=== PATIENT | female | born 1960 ===

== ENCOUNTER 2016-08-25 13:45 | Emergency (ER) | payer MEDICAID, SELFPAY ==
[2016-08-25 13:46] VITALS: BMI 31.9
[2016-08-25 14:01] VITALS: RESP 16
--- NOTE | 2016-08-25 14:13 | ED PDOC ---
HPI: Psych/Substance Abuse Time Seen by Provider: 08/25/16 14:04 Chief Complaint (Nursing): Chest Pain History Per: Patient (Anxious, palpitations worried about health and work. Karla [place]/HIMANSHU) Onset/Duration Of Symptoms: Days (2) Current Symptoms Are (Timing): Intermittent Episodes Suicide/Self Injury Attempted (Context): None Modifying Factor(s): None Severity: Mild Associated Symptoms: Anxiety Past Medical History Vital Signs: Last Vital Signs Temp 98.3 F 08/25/16 13:55 Pulse 81 08/25/16 13:55 Resp 16 08/25/16 13:55 BP 156/99 H 08/25/16 13:55 Pulse Ox 99 08/25/16 13:55 - Medical History PMH: Bronchitis, Diabetes, HTN, Hypercholesterolemia, Hyperlipidemia, Hypothyroidism, Pulmonary Embolism Denies: HIV, Chronic Kidney Disease - Family History Family History: States: Unknown Family Hx - Immunization History Hx Tetanus Toxoid Vaccination: No Hx Influenza Vaccination: No Hx Pneumococcal Vaccination: No - Home Medications Home Medications: Ambulatory Orders Medication Instructions Recorded Glimepiride [Amaryl] 4 mg PO DAILY 05/20/15 Metformin HCl 1,000 mg PO BID 05/20/15 Ramipril [Altace] 10 mg PO DAILY 05/20/15 Cyanocobalamin [Vitamin B12 1000 1,000 mcg PO DAILY #0 tab 05/22/15 mcg Tab] Levothyroxine [Levoxyl] 0.125 mg PO DAILY 06/11/15 Simvastatin 20 mg PO DAILY 06/11/15 diaZEpam [Valium] 2 mg PO BID PRN #6 tab 10/06/15 Naproxen [Naprosyn] 500 mg PO BID PRN #15 tablet 01/13/16 Erythromycin 0.5% [Erythromycin] 1 applic .ROUTE QID #1 tube 02/07/16 Acetaminophen with Codeine 1 tab PO Q6H PRN #15 tab 02/10/16 [Tylenol with Codeine No. 3 300 mg-30 mg] Clindamycin [Cleocin] 300 mg PO QID #40 cap 02/10/16 Albuterol HFA [Ventolin HFA 90 2 puff IH Q4H #1 puff 03/26/16 mcg/actuation (8 g)] Azithromycin [Zithromax] 250 mg PO DAILY #6 tab 03/26/16 predniSONE [predniSONE Tab] 10 mg PO TID #15 tab 03/26/16 Albuterol HFA [Ventolin HFA 90 2 puff IH [id number] PRN #1 bottle 04/06/16 mcg/actuation (8 g)] Levofloxacin [Levaquin] 750 mg PO DAILY #5 tablet 04/06/16 Hydroxyzine HCl 25 mg PO HS #6 tablet 08/25/16 - Allergies Allergies/Adverse Reactions: Allergies Allergy/AdvReac Type Severity Reaction Status Date / Time Iodine and Iodide Containing Allergy RASH Verified 07/07/16 23:54 Produc Review of Systems Cardiovascular: Positive for: Palpitations Psych: Positive for: Anxiety Physical Exam - Physical Exam Appears: Positive for: Non-toxic, No Acute Distress Skin: Positive for: Normal Color, Warm, DRY Cardiovascular/Chest: Positive for: Regular Rate, Rhythm Respiratory: Positive for: CNT, Normal Breath Sounds Neurologic/Psych: Positive for: Alert, Oriented - ECG O2 Sat by Pulse Oximetry: 99 Disposition - Clinical Impression Clinical Impression: Anxiety - Patient ED Disposition Is Patient to be Admitted: No - Disposition Referrals: [facility] [Outside] Disposition: Routine/Home Disposition Time: 16:14 Condition: FAIR Prescriptions: Hydroxyzine HCl 25 mg PO HS #6 tablet Instructions: Anxiety (ED)
[2016-08-25 15:46] LABS: T4 10.4 ug/dl (5.5-11.0)
[2016-08-25 15:59] LABS: THYROID STIMULATING HORMONE 0.13 mIU/ML (0.46-4.68)
[2016-08-25 16:33] VITALS: BP 132/73; PULSE 83; TEMP 98; O2SAT 100
== END 2016-08-25 16:33 | disposition home or self-care (01) ==
LOC: H.ER 13:45
DX: F41.9 Anxiety disorder, unspecified (principal); R07.9 Chest pain, unspecified; R00.2 Palpitations; E11.9 Type 2 diabetes mellitus without complications; E78.00 Pure hypercholesterolemia, unspecified; I10 Essential (primary) hypertension; Z86.711 Personal history of pulmonary embolism

== ENCOUNTER 2016-08-27 13:08 | Emergency (ER) | payer MEDICAID, SELFPAY ==
[2016-08-27 13:09] VITALS: BMI 31.9
[2016-08-27 13:38] VITALS: PULSE 79; TEMP 98.1; O2SAT 98
--- NOTE | 2016-08-27 14:05 | ED PDOC ---
HPI: General Adult Time Seen by Provider: 08/27/16 14:03 Chief Complaint (Nursing): Anxiety Chief Complaint (Provider): anxious History Per: Patient Additional Complaint(s): 56 year old female with history of hypothyroidism, HTN and high cholesterol presents with increasing anxiety and nervousness for the past few weeks. Patient was seen on 08/25/16 for same and was sent home with rx hydroxyzine. She is concerned her thyroid meds have to be adjusted. She states last year she has similar symptoms and her thyroid med dose was increased at that time and her symptoms resolved. Patient denies any chest pain, SOB or ROBLEDO, denies any palpitations but she has panic sensation. No associated suicidal or homicidal ideation, no fever or chills. Past Medical History Reviewed: Historical Data, Nursing Documentation, Vital Signs Vital Signs: Last Vital Signs Temp 98.1 F 08/27/16 13:34 Pulse 79 08/27/16 17:41 Resp 18 08/27/16 17:41 BP 142/84 08/27/16 17:41 Pulse Ox 98 08/27/16 18:33 - Medical History PMH: Anxiety, Diabetes, HTN, Hypercholesterolemia, Hyperlipidemia, Hypothyroidism - Surgical History Surgical History: No Surg Hx - Family History Family History: States: No Known Family Hx - Living Arrangements Living Arrangements: With Family - Social History Current smoker - smoking cessation education provided: No Alcohol: None Drugs: Denies - Home Medications Home Medications: Ambulatory Orders Medication Instructions Recorded Glimepiride [Amaryl] 4 mg PO DAILY 05/20/15 Metformin HCl 1,000 mg PO BID 05/20/15 Ramipril [Altace] 10 mg PO DAILY 05/20/15 Cyanocobalamin [Vitamin B12 1000 1,000 mcg PO DAILY #0 tab 05/22/15 mcg Tab] Levothyroxine [Levoxyl] 0.125 mg PO DAILY 06/11/15 Simvastatin 20 mg PO DAILY 06/11/15 diaZEpam [Valium] 2 mg PO BID PRN #6 tab 10/06/15 Naproxen [Naprosyn] 500 mg PO BID PRN #15 tablet 01/13/16 Erythromycin 0.5% [Erythromycin] 1 applic .ROUTE QID #1 tube 02/07/16 Acetaminophen with Codeine 1 tab PO Q6H PRN #15 tab 02/10/16 [Tylenol with Codeine No. 3 300 mg-30 mg] Clindamycin [Cleocin] 300 mg PO QID #40 cap 02/10/16 Albuterol HFA [Ventolin HFA 90 2 puff IH Q4H #1 puff 03/26/16 mcg/actuation (8 g)] Azithromycin [Zithromax] 250 mg PO DAILY #6 tab 03/26/16 predniSONE [predniSONE Tab] 10 mg PO TID #15 tab 03/26/16 Albuterol HFA [Ventolin HFA 90 2 puff IH [id number] PRN #1 bottle 04/06/16 mcg/actuation (8 g)] Levofloxacin [Levaquin] 750 mg PO DAILY #5 tablet 04/06/16 Hydroxyzine HCl 25 mg PO HS #6 tablet 08/25/16 Levothyroxine [Synthroid] 125 mcg PO DAILY #30 tab 08/27/16 - Allergies Allergies/Adverse Reactions: Allergies Allergy/AdvReac Type Severity Reaction Status Date / Time Iodine and Iodide Containing Allergy RASH Verified 07/07/16 23:54 Produc Review of Systems ROS Statement: Except As Marked, All Systems Reviewed And Found Negative Constitutional: Negative for: Fever, Chills, Weakness Cardiovascular: Negative for: Chest Pain, Palpitations Respiratory: Negative for: Shortness of Breath, SOB with Exertion Gastrointestinal: Negative for: Nausea, Vomiting Neurological: Negative for: Headache, Dizziness Psych: Positive for: Anxiety Physical Exam - Reviewed Nursing Documentation Reviewed: Yes Vital Signs Reviewed: Yes - Physical Exam Appears: Positive for: Well, Non-toxic, No Acute Distress Skin: Negative for: Rash Eye Exam: Positive for: Normal appearance, EOMI, PERRL Cardiovascular/Chest: Positive for: Regular Rate, Rhythm Respiratory: Positive for: Normal Breath Sounds Extremity: Positive for: Normal ROM. Negative for: Pedal Edema Neurologic/Psych: Positive for: Alert, Oriented - Laboratory Results Result Diagrams: 08/27/16 14:25 08/27/16 14:25 - ECG O2 Sat by Pulse Oximetry: 98 Pulse Ox Interpretation: Normal Medical Decision Making Medical Decision Makin56 year old with anxiety Plan: CBC CMP TSH T3 T4 Patient was offered crisis consultation she declines, denies suicidal or homicidal ideation. TSH is low. I spoke with family practice resident who states to adjust patient' s levothyroxine dose. Patient's dose was adjusted from 100 mcg daily to 125 mcg dialy. Rx was given. Patient was instructed to stop current 100 g tablet and continue with prescription instead. Patient has follow up with clinic on and she was instructed to keep this appointment. Disposition - Clinical Impression Clinical Impression: Hypothyroidism - Patient ED Disposition Is Patient to be Admitted: No Counseled Patient/Family Regarding: Studies Performed, Diagnosis, Need For Followup, Rx Given - Disposition Referrals: [facility] [Outside] Disposition: Routine/Home Disposition Time: 17:28 Condition: STABLE Additional Instructions: Stop taking current thyroid medication and continue with the new dose prescribed today. Keep your appointment on September 04 with the clinic for follow- up. Return any time to ED if acutely worse. Prescriptions: Levothyroxine [Synthroid] 125 mcg PO DAILY #30 tab Instructions: Hypothyroidism (ED) Results - Lab Results Lab Results: 08/27/16 14:25 WBC 4.6 L RBC 4.79 Hgb 13.3 Hct 40.9 MCV 85.5 MCH 27.8 MCHC 32.5 L RDW 13.6 Plt Count 179 MPV 9.1 Neut % (Auto) 55.4 Lymph % (Auto) 31.3 [place] % (Auto) 8.6 Eos % (Auto) 4.1 H Baso % (Auto) 0.6 Neut # 2.6 Lymph # 1.5 [place] # 0.4 Eos # 0.2 Baso # 0.0 Sodium 144 Potassium 4.6 Chloride 104 Carbon Dioxide 28 Anion Gap 17 BUN 12 Creatinine 0.6 L Est GFR ( Amer) > 60 Est GFR (Non-Af Amer) > 60 Random Glucose 157 H Calcium 9.7 Total Bilirubin 0.5 AST 33 ALT 31 Alkaline Phosphatase 46 Total Protein 7.3 Albumin 4.0 Globulin 3.3 Albumin/Globulin Ratio 1.2 Free T4 1.25 TSH 3rd Generation 0.13 L
[2016-08-27 14:45] LABS: BASO % 0.6 % (0.0-2.0); EOS # 0.2 K/uL (0.0-0.7); EOS % 4.1 % (0.0-4.0); HEMATOCRIT 40.9 % (34.0-47.0); LYMPH # 1.5 K/uL (1.0-4.3); LYMPH % 31.3 % (20.0-40.0); MEAN CELL VOLUME 85.5 fl (81.0-99.0); MEAN CORPUSCULAR HEMOGLOBIN 27.8 pg (27.0-31.0); MEAN CORPUSCULAR HGB CONC 32.5 g/dL (33.0-37.0); MEAN PLATELET VOLUME 9.1 fl (7.2-11.7); MONO # 0.4 K/uL (0.0-0.8); MONO % 8.6 % (0.0-10.0); NEUT # 2.6 K/uL (1.8-7.0); NEUT % 55.4 % (50.0-75.0); RED CELL DISTRIBUTION WIDTH 13.6 % (11.5-14.5); WHITE BLOOD COUNT 4.6 K/uL (4.8-10.8)
[2016-08-27 14:54] LABS: ALB/GLOB RATIO 1.2 (1.0-2.1); ALKALINE PHOSPHATASE 46 U/L (38-126); ALT/SGPT 31 U/L (9-52); AST/SGOT 33 U/L (14-36); BILIRUBIN,TOTAL 0.5 mg/dl (0.2-1.3); BLOOD UREA NITROGEN 12 mg/dl (7-17); CALCIUM 9.7 mg/dL (8.4-10.2); CARBON DIOXIDE 28 mmol/L (22-30); CHLORIDE 104 mmol/L (98-107); GFR AFRICAN-AMERICAN > 60; GLUCOSE,RANDOM 157 mg/dL (65-105); SODIUM 144 mmol/l (132-148); TOTAL PROTEIN 7.3 G/DL (6.3-8.2)
[2016-08-27 14:57] LABS: POTASSIUM 4.6 MMOL/L (3.6-5.0)
[2016-08-27 16:56] LABS: THYROID STIMULATING HORMONE 0.13 mIU/ML (0.46-4.68)
[2016-08-27 17:42] VITALS: BP 142/84; RESP 18
[2016-08-27 22:09] LABS: FT3 3.32 pg/mL (2.77-5.27)
== END 2016-08-27 17:45 | disposition home or self-care (01) ==
LOC: H.ER 13:08
DX: E03.9 Hypothyroidism, unspecified (principal); F41.9 Anxiety disorder, unspecified

== ENCOUNTER 2017-01-02 08:05 | Emergency (ER) | payer MEDICAID ==
[2017-01-02 08:05] VITALS: BMI 31.9
[2017-01-02 09:30] LABS: BASO % 0.5 % (0.0-2.0); EOS # 0.1 K/uL (0.0-0.7); EOS % 2.4 % (0.0-4.0); HEMATOCRIT 38.7 % (34.0-47.0); LYMPH # 1.5 K/uL (1.0-4.3); LYMPH % 31.8 % (20.0-40.0); MEAN CELL VOLUME 84.2 fl (81.0-99.0); MEAN CORPUSCULAR HEMOGLOBIN 28.2 pg (27.0-31.0); MEAN CORPUSCULAR HGB CONC 33.4 g/dL (33.0-37.0); MEAN PLATELET VOLUME 8.9 fl (7.2-11.7); MONO # 0.4 K/uL (0.0-0.8); MONO % 7.5 % (0.0-10.0); NEUT # 2.7 K/uL (1.8-7.0); NEUT % 57.8 % (50.0-75.0); RED CELL DISTRIBUTION WIDTH 13.6 % (11.5-14.5); WHITE BLOOD COUNT 4.7 K/uL (4.8-10.8)
[2017-01-02 09:38] LABS: BLOOD UREA NITROGEN 19 mg/dl (7-17); CALCIUM 9.2 mg/dL (8.4-10.2); CARBON DIOXIDE 25 mmol/L (22-30); CHLORIDE 101 mmol/L (98-107); GFR AFRICAN-AMERICAN > 60; GLUCOSE,RANDOM 207 mg/dL (65-105); POTASSIUM 4.6 MMOL/L (3.6-5.0); SODIUM 136 mmol/l (132-148)
--- NOTE | 2017-01-02 09:39 | ED PDOC ---
HPI: General Adult Time Seen by Provider: 01/02/17 08:13 Chief Complaint (Nursing): Weakness/Neurological Deficit Chief Complaint (Provider): Generalized Weakness History Per: Patient History/Exam Limitations: no limitations Onset/Duration Of Symptoms: Days (x2 weeks ) Current Symptoms Are (Timing): Still Present Additional Complaint(s): 56 y/o female with a past medical history of hypertension, diabetes, and hypothyroidism who presents to the emergency department with a complaint of generalized weakness, fatigue, low energy, and intermittent nausea x2 weeks. States she was experiencing chest pain on/off but had resolved since. Denies vomiting, dizziness, syncope, unusual bleeding, diarrhea, fever, or chills. PMD: Clinic Past Medical History Reviewed: Historical Data, Nursing Documentation, Vital Signs Vital Signs: Last Vital Signs Temp 98.4 F 01/02/17 08:21 Pulse 82 01/02/17 08:21 Resp 20 01/02/17 08:21 BP 157/85 H 01/02/17 08:21 Pulse Ox 99 01/02/17 09:44 - Medical History PMH: Anxiety, Bronchitis, Diabetes, HTN, Hypercholesterolemia, Hyperlipidemia, Hypothyroidism, Pulmonary Embolism Denies: HIV, Chronic Kidney Disease - Family History Family History: States: Unknown Family Hx - Immunization History Hx Tetanus Toxoid Vaccination: No Hx Influenza Vaccination: No Hx Pneumococcal Vaccination: No - Home Medications Home Medications: Ambulatory Orders Medication Instructions Recorded Glimepiride [Amaryl] 4 mg PO DAILY 05/20/15 Metformin HCl 1,000 mg PO BID 05/20/15 Ramipril [Altace] 10 mg PO DAILY 05/20/15 Cyanocobalamin [Vitamin B12 1000 1,000 mcg PO DAILY #0 tab 05/22/15 mcg Tab] Levothyroxine [Levoxyl] 0.125 mg PO DAILY 06/11/15 Simvastatin 20 mg PO DAILY 06/11/15 diaZEpam [Valium] 2 mg PO BID PRN #6 tab 10/06/15 Naproxen [Naprosyn] 500 mg PO BID PRN #15 tablet 01/13/16 Erythromycin 0.5% [Erythromycin] 1 applic .ROUTE QID #1 tube 02/07/16 Acetaminophen with Codeine 1 tab PO Q6H PRN #15 tab 02/10/16 [Tylenol with Codeine No. 3 300 mg-30 mg] Clindamycin [Cleocin] 300 mg PO QID #40 cap 02/10/16 Albuterol HFA [Ventolin HFA 90 2 puff IH Q4H #1 puff 03/26/16 mcg/actuation (8 g)] Azithromycin [Zithromax] 250 mg PO DAILY #6 tab 03/26/16 predniSONE [predniSONE Tab] 10 mg PO TID #15 tab 03/26/16 Albuterol HFA [Ventolin HFA 90 2 puff IH [id number] PRN #1 bottle 04/06/16 mcg/actuation (8 g)] Levofloxacin [Levaquin] 750 mg PO DAILY #5 tablet 04/06/16 Hydroxyzine HCl 25 mg PO HS #6 tablet 08/25/16 Levothyroxine [Synthroid] 125 mcg PO DAILY #30 tab 08/27/16 - Allergies Allergies/Adverse Reactions: Allergies Allergy/AdvReac Type Severity Reaction Status Date / Time Iodine and Iodide Containing Allergy RASH Verified 01/02/17 08:20 Produc Review of Systems ROS Statement: Except As Marked, All Systems Reviewed And Found Negative Constitutional: Positive for: Weakness (Generalized), Other (Fatigue and low energy). Negative for: Fever, Chills Cardiovascular: Positive for: Chest Pain (On/off but had resolved since) Gastrointestinal: Positive for: Nausea (Intermittent). Negative for: Vomiting, Diarrhea Neurological: Negative for: Dizziness, Other (Syncope or bleeding) Physical Exam - Reviewed Nursing Documentation Reviewed: Yes Vital Signs Reviewed: Yes - Physical Exam Appears: Positive for: Non-toxic, No Acute Distress Head Exam: Positive for: ATRAUMATIC, NORMAL INSPECTION, NORMOCEPHALIC Skin: Positive for: Normal Color, Warm, Dry Eye Exam: Positive for: Normal appearance ENT: Positive for: Normal ENT Inspection. Negative for: Pharyngeal Erythema Neck: Positive for: Normal, Supple Cardiovascular/Chest: Positive for: Regular Rate, Rhythm. Negative for: Murmur Respiratory: Positive for: Normal Breath Sounds. Negative for: Accessory Muscle Use, Respiratory Distress Gastrointestinal/Abdominal: Positive for: Normal Exam, Soft. Negative for: Tenderness Extremity: Positive for: Normal ROM. Negative for: Pedal Edema Neurologic/Psych: Positive for: Alert, Oriented - Laboratory Results Result Diagrams: 01/02/17 09:00 01/02/17 09:00 - ECG ECG Rhythm: Positive for: Normal QRS, Normal ST Segment, Sinus Rhythm (Rate at 69 bpm). Negative for: ST/T Changes O2 Sat by Pulse Oximetry: 99 (RA) Pulse Ox Interpretation: Normal Medical Decision Making Medical Decision Making: Time: 08:53 Initial impression: Generalized fatigue. Differential includes hypothyroidism, UTI, and hyperglycemia Initial plan: --EKG --BMP --TSH --Troponin I --Urine DIP --Reevaluation Scribe Attestation: Documented by Batsheva Quintero, acting as a scribe for Artem Robison MD. Provider Scribe Attestation: All medical record entries made by the Scribe were at my direction and personally dictated by me. I have reviewed the chart and agree that the record accurately reflects my personal performance of the history, physical exam, medical decision making, and the department course for this patient. I have also personally directed, reviewed, and agree with the discharge instructions and disposition. Disposition - Clinical Impression Clinical Impression: Hypothyroidism - Patient ED Disposition Is Patient to be Admitted: No Doctor Will See Patient In The: Office Counseled Patient/Family Regarding: Studies Performed, Diagnosis, Need For Followup - Disposition Referrals: [facility] [Outside] Disposition: Routine/Home Disposition Time: 10:23 Condition: GOOD Additional Instructions: Drink plenty of fluids. Take your medications as instructed Follow up with your PCP in 2-3 days. Instructions: Hypothyroidism (ED)
[2017-01-02 10:08] LABS: THYROID STIMULATING HORMONE 6.24 mIU/ML (0.46-4.68)
[2017-01-02 10:37] VITALS: BP 128/78; PULSE 78; RESP 19; TEMP 97.6; O2SAT 98
--- NOTE | 2017-01-02 10:58 | CARD ---
APPROVED REPORT EKG Measurement Heart [id number] <Conclusion> Normal sinus rhythm Normal ECG
== END 2017-01-02 10:37 | disposition home or self-care (01) ==
LOC: H.ER 08:05
DX: E03.9 Hypothyroidism, unspecified (principal); E11.9 Type 2 diabetes mellitus without complications; E78.5 Hyperlipidemia, unspecified; F41.9 Anxiety disorder, unspecified; I10 Essential (primary) hypertension; Z86.711 Personal history of pulmonary embolism

== ENCOUNTER 2017-04-02 14:22 | Observation (INO) | payer MEDICAID ==
[2017-04-02 14:22] VITALS: BMI 30.5
[2017-04-02 15:35] LABS: BASO % 0.4 % (0.0-2.0); EOS # 0.1 K/uL (0.0-0.7); HEMATOCRIT 40.4 % (34.0-47.0); LYMPH # 3.2 K/uL (1.0-4.3); LYMPH % 43.2 % (20.0-40.0); MEAN CELL VOLUME 85.3 fl (81.0-99.0); MEAN CORPUSCULAR HEMOGLOBIN 28.1 pg (27.0-31.0); MEAN CORPUSCULAR HGB CONC 32.9 g/dL (33.0-37.0); MEAN PLATELET VOLUME 8.6 fl (7.2-11.7); MONO # 0.6 K/uL (0.0-0.8); MONO % 7.8 % (0.0-10.0); NEUT # 3.5 K/uL (1.8-7.0); NEUT % 46.6 % (50.0-75.0); NRBC % 0.1 % (0.0-0.0); RED CELL DISTRIBUTION WIDTH 14.3 % (11.5-14.5); WHITE BLOOD COUNT 7.4 K/uL (4.8-10.8)
[2017-04-02 15:46] LABS: BLOOD UREA NITROGEN 20 mg/dl (7-17); CALCIUM 9.8 mg/dL (8.4-10.2); CARBON DIOXIDE 28 mmol/L (22-30); CHLORIDE 103 mmol/L (98-107); GFR AFRICAN-AMERICAN > 60; GLUCOSE,RANDOM 104 mg/dL (65-105); MAGNESIUM 1.5 MG/DL (1.6-2.3); POTASSIUM 4.8 MMOL/L (3.6-5.0); SODIUM 143 mmol/l (132-148)
--- NOTE | 2017-04-02 16:46 | ED PDOC ---
HPI: General Adult Time Seen by Provider: 04/02/17 16:33 Chief Complaint (Nursing): Dizziness/Lightheaded Chief Complaint (Provider): CHEST PAIN History Per: Patient (56 Y/O FEMALE H/O DM/HTN/HLD HERE WITH INTERMITTENT CHEST TIGHTNESS INVOLVING NECK X 3 DAYS ASSOCIATED WITH PALPITATIONS. PATIENT STATES HER FATHER IS ILL AND IS UNSURE WHETHER CHEST PAIN IS RELATED TO ANXIETY/ STRESS. DENIES ANY FEVERS/CHILLS.COUGH.) Past Medical History Reviewed: Historical Data, Nursing Documentation, Vital Signs Vital Signs: Last Vital Signs Temp 98 F 04/02/17 14:29 Pulse 80 04/02/17 14:29 Resp 18 04/02/17 14:29 BP 152/68 H 04/02/17 14:29 Pulse Ox 98 04/02/17 14:29 - Medical History PMH: Anxiety, Bronchitis, Diabetes, HTN, Hypercholesterolemia, Hyperlipidemia, Hypothyroidism, Pulmonary Embolism Denies: HIV, Chronic Kidney Disease - Family History Family History: States: Unknown Family Hx - Immunization History Hx Tetanus Toxoid Vaccination: No Hx Influenza Vaccination: No Hx Pneumococcal Vaccination: No - Home Medications Home Medications: Ambulatory Orders Medication Instructions Recorded Glimepiride [Amaryl] 4 mg PO DAILY 05/20/15 Metformin HCl 1,000 mg PO BID 05/20/15 Ramipril [Altace] 10 mg PO DAILY 05/20/15 Cyanocobalamin [Vitamin B12 1000 1,000 mcg PO DAILY #0 tab 05/22/15 mcg Tab] Levothyroxine [Levoxyl] 0.125 mg PO DAILY 06/11/15 Simvastatin 20 mg PO DAILY 06/11/15 diaZEpam [Valium] 2 mg PO BID PRN #6 tab 10/06/15 Naproxen [Naprosyn] 500 mg PO BID PRN #15 tablet 01/13/16 Erythromycin 0.5% [Erythromycin] 1 applic .ROUTE QID #1 tube 02/07/16 Acetaminophen with Codeine 1 tab PO Q6H PRN #15 tab 02/10/16 [Tylenol with Codeine No. 3 300 mg-30 mg] Clindamycin [Cleocin] 300 mg PO QID #40 cap 02/10/16 Albuterol HFA [Ventolin HFA 90 2 puff IH Q4H #1 puff 03/26/16 mcg/actuation (8 g)] Azithromycin [Zithromax] 250 mg PO DAILY #6 tab 03/26/16 predniSONE [predniSONE Tab] 10 mg PO TID #15 tab 03/26/16 Albuterol HFA [Ventolin HFA 90 2 puff IH [id number] PRN #1 bottle 04/06/16 mcg/actuation (8 g)] Levofloxacin [Levaquin] 750 mg PO DAILY #5 tablet 04/06/16 Hydroxyzine HCl 25 mg PO HS #6 tablet 08/25/16 Levothyroxine [Synthroid] 125 mcg PO DAILY #30 tab 08/27/16 - Allergies Allergies/Adverse Reactions: Allergies Allergy/AdvReac Type Severity Reaction Status Date / Time Iodine and Iodide Containing Allergy RASH Verified 01/02/17 08:20 Produc Review of Systems ROS Statement: Except As Marked, All Systems Reviewed And Found Negative Physical Exam - Reviewed Nursing Documentation Reviewed: Yes Vital Signs Reviewed: Yes - Physical Exam Appears: Positive for: Well, Non-toxic, No Acute Distress Head Exam: Positive for: ATRAUMATIC, NORMAL INSPECTION, NORMOCEPHALIC Skin: Positive for: Normal Color, Warm, DRY Eye Exam: Positive for: EOMI, Normal appearance, PERRL ENT: Positive for: Normal ENT Inspection Neck: Positive for: Normal, Painless ROM Cardiovascular/Chest: Positive for: Regular Rate, Rhythm Respiratory: Positive for: CNT, Normal Breath Sounds Gastrointestinal/Abdominal: Positive for: Normal Exam, Bowel Sounds, Soft Back: Positive for: Normal Inspection Extremity: Positive for: Normal ROM Neurologic/Psych: Positive for: Alert, Oriented - Laboratory Results Result Diagrams: 04/02/17 15:20 04/02/17 15:20 - ECG ECG Rhythm: Positive for: Sinus Rhythm (NSR NO ECTOPY NO ACUTE CHANGES NOTED.) O2 Sat by Pulse Oximetry: 98 - Progress ED Course And Treament: CXR: NAD ASA 263 MG X 1 DOSE XANAX 0.5 MG X 1 DOSE D/W [employer] 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 Disposition - Clinical Impression Clinical Impression: Atypical chest pain - Patient ED Disposition Is Patient to be Admitted: Yes - Disposition Disposition Time: 16:30 Condition: FAIR Forms: [facility] ([place] - Pt Status Changed To: Hospital Disposition Of: Observation
--- NOTE | 2017-04-02 17:11 | RAD ---
PROCEDURE: CHEST RADIOGRAPH, 1 VIEW HISTORY: chest pain COMPARISON: Chest radiograph 06/06/2016 FINDINGS: LUNGS: No interval infiltrates bilaterally. PLEURA: No pneumothorax or pleural fluid seen. CARDIOVASCULAR: Normal. OSSEOUS STRUCTURES: No significant abnormalities. VISUALIZED UPPER ABDOMEN: Normal. OTHER FINDINGS: None. IMPRESSION: No interval acute cardiopulmonary disease appreciated.
--- NOTE | 2017-04-02 18:37 | CP.PCM.HP ---
History of Present Illness - History of Present Illness History of Present Illness: 56 yo female PMH DMII, HTN, hyperlipidemia, thyroid CA s/p thyroidectomy, hypothyroidism, PE, anxiety and mood disorder presents to [facility] ED w/ complaints of intermittent chest pressure and chest pain that radiates anterior neck for over a year, getting worse last 15 days. Pt reports she has multiple stressor including her father admitted to hospital and job related issues making her chest pain/pressure worse. Reports chest pain/pressure 7/10, partially relieved by rubbing on chest. Denies any nausea, vomiting, dyspnea, cough, upper extremity weakness/numbness, fever or chills. Denies dyspnea on exertion or orthopnea. Denies any recent travel or long distance trip. Pt had a stress test with Dr. Waldron on 02/12/17 which showed mildy reduced effort tolerance and no evidence of myocardial ischemia was detected. PMD: [facility] PMH: DMII, HTN, Hyperlipidemia, thyroid CA s/p thyroidetomy,hypothyroidism, pulmonary embolism 9 yrs ago, anxiety, mood disorder. Home medications: Aspirin 81 mg QD, levothyroxine 75 mcg QD, ramipril 10 mg QD, simvastatin 20 mg QD, metformin 1000 mg BID, glimepiride 4 mg QD, klonopin 0.5 mg prn family hx: sister has hx DMII. Denies any family hx HTN, HLD, CAD or CA. Surgery hx: thyroidectomy social hx: Former smoker, used to smoked 7 cigarettes/day x 1 yrs, quit 9 yrs ago, Denies EtOH use or other recreational drug use. Allergies: Iodine ED Course And Treament: EKG: NSR at 74 bpm. No acute changes noted. CXR: no acute cardiopulmonary disease CBC, CMP, Troponin neg x 1 ASA 263 mg X 1 dose Xanax 0.5 MG X 1 dose magnesium sulfate 1 gm Present on Admission - Present on Admission Any Indicators Present on Admission: Yes History of DVT/PE: Yes History of Uncontrolled Diabetes: No Urinary Catheter: No Decubitus Ulcer Present: No Review of Systems - Constitutional Constitutional: absent: Chills, Fever - EENT Eyes: absent: Blurred Vision Nose/Mouth/Throat: absent: Odynophagia, Sore Throat, Neck Mass - Cardiovascular Cardiovascular: absent: Dyspnea, Dyspnea on Exertion, Lightheadedness, Orthopnea , Palpitations - Respiratory Respiratory: absent: Cough, Dyspnea - Gastrointestinal Gastrointestinal: absent: Constipation, Nausea, Vomiting - Musculoskeletal Musculoskeletal: absent: Muscle Weakness, Radiating Pain into Limb - Neurological Neurological: absent: Abnormal Gait, Dizziness, Focal Weakness - Endocrine Endocrine: absent: Palpitations Past Patient History - Infectious Disease Hx of Infectious Diseases: None - Past Medical History & Family History Past Medical History?: Yes - Past Social History Smoking Status: Former Smoker - CARDIAC Hx Hypercholesterolemia: Yes Hx Hypertension: Yes - PULMONARY Hx Bronchitis: Yes Hx Pulmonary Embolism: Yes - NEUROLOGICAL Hx Neurological Disorder: No - HEENT Hx HEENT Problems: No - RENAL Hx Chronic Kidney Disease: No - ENDOCRINE/METABOLIC Hx Hypothyroidism: Yes - HEMATOLOGICAL/ONCOLOGICAL Hx Human Immunodeficiency Virus (HIV): No - INTEGUMENTARY Hx Dermatological Problems: No - MUSCULOSKELETAL/RHEUMATOLOGICAL Hx Musculoskeletal Disorders: No - GASTROINTESTINAL Hx Gastrointestinal Disorders: No - GENITOURINARY/GYNECOLOGICAL Hx Genitourinary Disorders: No - PSYCHIATRIC Hx Anxiety: Yes Hx Substance Use: No - SURGICAL HISTORY Hx Surgeries: Yes Hx Thyroidectomy: Yes Hx Tubal Ligation: Yes - ANESTHESIA Hx Anesthesia: Yes Hx Anesthesia Reactions: No Meds Allergies/Adverse Reactions: Allergies Allergy/AdvReac Type Severity Reaction Status Date / Time Iodine and Iodide Containing Allergy RASH Verified 01/02/17 08:20 Produc Physical Exam - Constitutional Appears: No Acute Distress - Head Exam Head Exam: ATRAUMATIC, NORMAL INSPECTION, NORMOCEPHALIC - Eye Exam Eye Exam: EOMI, Normal appearance, PERRL - ENT Exam ENT Exam: Mucous Membranes Moist - Neck Exam Neck exam: Positive for: Normal Inspection Additional comments: surgical scar on anterior neck - Respiratory Exam Respiratory Exam: Clear to Auscultation Bilateral. absent: Rales, Rhonchi, Wheezes - Cardiovascular Exam Cardiovascular Exam: REGULAR RHYTHM, RRR, +S1, +S2. absent: Gallop - GI/Abdominal Exam GI & Abdominal Exam: Normal Bowel Sounds, Soft. absent: Rebound, Tenderness - Extremities Exam Extremities exam: Positive for: normal capillary refill. Negative for: calf tenderness - Neurological Exam Neurological exam: Alert, CN II-XII Intact, Normal Gait, Oriented x3, Reflexes Normal - Psychiatric Exam Psychiatric exam: Anxious Additional comments: tearful - Skin Skin Exam: Normal Color Results - Vital Signs Recent Vital Signs: Last Vital Signs Temp 98 F 04/02/17 17:42 Pulse 80 04/02/17 17:42 Resp 18 04/02/17 17:42 BP 152/68 H 04/02/17 17:42 Pulse Ox 98 04/02/17 16:46 - Labs Result Diagrams: 04/02/17 15:20 04/02/17 15:20 Labs: Laboratory Results - last 24 hr 04/02/17 04/02/17 15:20 15:20 WBC 7.4 D RBC 4.74 Hgb 13.3 Hct 40.4 MCV 85.3 MCH 28.1 MCHC 32.9 L RDW 14.3 Plt Count 212 MPV 8.6 Neut % (Auto) 46.6 L Lymph % (Auto) 43.2 H Greeley % (Auto) 7.8 Eos % (Auto) 2.0 Baso % (Auto) 0.4 Neut # 3.5 Lymph # 3.2 Greeley # 0.6 Eos # 0.1 Baso # 0.0 Sodium 143 Potassium 4.8 Chloride 103 Carbon Dioxide 28 Anion Gap 17 BUN 20 H Creatinine 0.8 Est GFR ( Amer) > 60 Est GFR (Non-Af Amer) > 60 Random Glucose 104 Calcium 9.8 Magnesium 1.5 L Troponin I < 0.0120 Assessment & Plan - Assessment and Plan (Free Text) Assessment: Assessment: 56 yo female PMH DMII, HTN, hyperlipidemia, PE, anxiety and mood disorder presents to [facility] ED for atypical chest pain r/o ACS Plan: 1. Atypical chest pain -Admit to tele for continuous cardiac monitoring. -EKG: NSR at 74 bpm. -CXR: no acute cardiopulmonary disease. -Troponin neg x 1 -Troponin q8h x 2 ordered. -Received one dose xanax 0.5 mg in ED. -Repeat EKG in tomorrow AM. 2. Hypomagnesemia -Magnesium: 1.5 -Received 1 gm magnesium sulfate in ED. -Repeat CMP tomorrow AM. 3. NIDDM II, controlled. -HbA1c 6.8 on 03/30/17 -Start home medications. -Metformin 1000 mg BID -Glimepiride 4 mg QD. 4. Hypertension: -Continue with home medication. -Ramipril 10 mg QD. 5. Hyperlipidemia: -Continue with home medication. -Simvastatin 20 mg QD. -Lipid panel tomorrow AM. 6. Hypothyroidism: -Continue with home medication. -Levothyroxine 75 mcg QD -TSH tomorrow AM 7. DVT prophylaxis: -SCD prn -Start Lovenox 40 mg SC 8. Diet: -Consistent carbohydrate diet. - Date & Time Date: 04/02/17 Time: 19:35
[2017-04-02 20:10] LABS: PARTIAL THROMBOPLASTIN TIME 25.7 Seconds (25.6-37.1)
[2017-04-03 06:08] LABS: ALB/GLOB RATIO 1.4 (1.0-2.1); ALKALINE PHOSPHATASE 42 U/L (38-126); ALT/SGPT 31 U/L (9-52); AST/SGOT 27 U/L (14-36); BILIRUBIN,TOTAL 0.5 mg/dl (0.2-1.3); BLOOD UREA NITROGEN 16 mg/dl (7-17); CALCIUM 9.5 mg/dL (8.4-10.2); CARBON DIOXIDE 30 mmol/L (22-30); CHLORIDE 106 mmol/L (98-107); CHOLESTEROL 126 mg/dL (0-199); GFR AFRICAN-AMERICAN > 60; GLUCOSE,RANDOM 78 mg/dL (65-105); POTASSIUM 5.4 MMOL/L (3.6-5.0); SODIUM 144 mmol/l (132-148)
[2017-04-03] MEDS ORDERED: Levothyroxine 88 MCG TAB PO SCH (06:30)
[2017-04-03 06:31] LABS: THYROID STIMULATING HORMONE 0.46 mIU/ML (0.46-4.68)
[2017-04-03 08:20] VITALS: BP 113/67; PULSE 63; RESP 20; TEMP 98.3; O2SAT 100
--- NOTE | 2017-04-03 08:49 | CP.PCM.PN ---
Subjective - Date & Time of Evaluation Date of Evaluation: 04/03/17 Time of Evaluation: 07:35 Objective - Vital Signs/Intake and Output Vital Signs (last 24 hours): Temp Pulse Resp BP Pulse Ox 98.3 F 63 20 113/67 100 04/03/17 08:00 04/03/17 08:00 04/03/17 08:00 04/03/17 08:00 04/03/17 08:00 - Medications Medications: Current Medications Acetaminophen (Tylenol 325mg Tab) 650 mg PO Q6 PRN PRN Reason: Pain, Mild (1-3) Atorvastatin Calcium (Lipitor) 10 mg PO DAILY [facility] Last Admin: 04/03/17 08:37 Dose: 10 mg Docusate Sodium (Colace) 100 mg PO BID PRN PRN Reason: Constipation Enoxaparin Sodium (Lovenox) 40 mg SC DAILY [facility] PRN Reason: Protocol Last Admin: 04/03/17 08:38 Dose: 40 mg Glipizide (Glucotrol Xl) 10 mg PO DAILY [facility] Last Admin: 04/03/17 08:37 Dose: 10 mg Levothyroxine Sodium (Synthroid) 88 mcg PO DAILY@0630 [facility] Last Admin: 04/03/17 06:16 Dose: 88 mcg Metformin HCl (Glucophage) 1,000 mg PO BID [facility] Last Admin: 04/03/17 08:37 Dose: 1,000 mg - Labs Labs: 04/02/17 15:20 04/03/17 04:47 PT 10.5 Seconds (9.8-13.1) 04/02/17 19:39 INR 0.9 (0.9-1.2) 04/02/17 19:39 APTT 25.7 Seconds (25.6-37.1) 04/02/17 19:39
[2017-04-03] MEDS ORDERED: GlipiZIDE 10 mg SR Tab PO SCH (09:00)
[2017-04-03] MEDS ORDERED: Enoxaparin 40 mg Syringe SC SCH (09:00)
--- NOTE | 2017-04-03 10:34 | CP.PCM.DIS ---
Provider - Provider Date of Admission: 04/02/17 16:33 Attending physician: Vanessa Rodgers MD [facility] Time Spent in preparation of Discharge (in minutes): 30 Hospital Course - Lab Results Lab Results: Most Recent Lab Values WBC 7.4 K/uL (4.8-10.8) D 04/02/17 15:20 RBC 4.74 Mil/uL (3.80-5.20) 04/02/17 15:20 Hgb 13.3 g/dL (12.0-16.0) 04/02/17 15:20 Hct 40.4 % (34.0-47.0) 04/02/17 15:20 MCV 85.3 fl (81.0-99.0) 04/02/17 15:20 MCH 28.1 pg (27.0-31.0) 04/02/17 15:20 MCHC 32.9 g/dL (33.0-37.0) L 04/02/17 15:20 RDW 14.3 % (11.5-14.5) 04/02/17 15:20 Plt Count 212 K/uL (130-400) 04/02/17 15:20 MPV 8.6 fl (7.2-11.7) 04/02/17 15:20 Neut % (Auto) 46.6 % (50.0-75.0) L 04/02/17 15:20 Lymph % (Auto) 43.2 % (20.0-40.0) H 04/02/17 15:20 Meagher % (Auto) 7.8 % (0.0-10.0) 04/02/17 15:20 Eos % (Auto) 2.0 % (0.0-4.0) 04/02/17 15:20 Baso % (Auto) 0.4 % (0.0-2.0) 04/02/17 15:20 Neut # 3.5 K/uL (1.8-7.0) 04/02/17 15:20 Lymph # 3.2 K/uL (1.0-4.3) 04/02/17 15:20 Meagher # 0.6 K/uL (0.0-0.8) 04/02/17 15:20 Eos # 0.1 K/uL (0.0-0.7) 04/02/17 15:20 Baso # 0.0 K/uL (0.0-0.2) 04/02/17 15:20 PT 10.5 Seconds (9.8-13.1) 04/02/17 19:39 INR 0.9 (0.9-1.2) 04/02/17 19:39 APTT 25.7 Seconds (25.6-37.1) 04/02/17 19:39 Sodium 144 mmol/l (132-148) 04/03/17 04:47 Potassium 5.4 MMOL/L (3.6-5.0) H 04/03/17 04:47 Chloride 106 mmol/L (98-107) 04/03/17 04:47 Carbon Dioxide 30 mmol/L (22-30) 04/03/17 04:47 Anion Gap 13 (10-20) 04/03/17 04:47 BUN 16 mg/dl (7-17) 04/03/17 04:47 Creatinine 0.8 mg/dl (0.7-1.2) 04/03/17 04:47 Est GFR ( Amer) > 60 04/03/17 04:47 Est GFR (Non-Af Amer) > 60 04/03/17 04:47 POC Glucose (mg/dL) 72 mg/dL (65-110) 04/03/17 06:16 Random Glucose 78 mg/dL (65-105) 04/03/17 04:47 Calcium 9.5 mg/dL (8.4-10.2) 04/03/17 04:47 Magnesium 1.5 MG/DL (1.6-2.3) L 04/02/17 15:20 Total Bilirubin 0.5 mg/dl (0.2-1.3) 04/03/17 04:47 AST 27 U/L (14-36) 04/03/17 04:47 ALT 31 U/L (9-52) 04/03/17 04:47 Alkaline Phosphatase 42 U/L (38-126) 04/03/17 04:47 Troponin I < 0.0120 ng/mL (0.00-0.120) 04/03/17 00:30 Total Protein 7.0 G/DL (6.3-8.2) 04/03/17 04:47 Albumin 4.1 g/dL (3.5-5.0) 04/03/17 04:47 Globulin 2.9 gm/dL (2.2-3.9) 04/03/17 04:47 Albumin/Globulin Ratio 1.4 (1.0-2.1) 04/03/17 04:47 Triglycerides 115 mg/DL (0-149) 04/03/17 04:47 Cholesterol 126 mg/dL (0-199) 04/03/17 04:47 LDL Cholesterol Direct 48 mg/dL (0-129) 04/03/17 04:47 HDL Cholesterol 48 MG/DL (30-70) 04/03/17 04:47 TSH 3rd Generation 0.46 mIU/ML (0.46-4.68) 04/03/17 04:47 - Hospital Course Hospital Course: 56 yo female PMH DMII, HTN, hyperlipidemia, hypothyroidism, PE, anxiety and mood disorder presents to [facility] ED w/ complaints of intermittent chest pressure and chest pain that radiates anterior neck for over a year, getting worse last 15 days. Pt reports she has multiple stressor including her father admitted to hospital and job related issues making her chest pain/pressure worse. 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 Pt had normal CXR, negative troponin x 2. Pt's last chest pain was in ED. Ramipril was discontinued as it might be causing her hyperkalemia ( K: 5.4). Pt had well controlled BP. Pt started on Sertraline 25 mg QD. Pt has appointment with Dr. Houser on 04/22/17 at 1 pm and advised to f/u with appointment. Advised to f/u with her psychiatrist Dr. Kimball. Discharge Exam - Head Exam Head Exam: NORMAL INSPECTION - Respiratory Exam Respiratory Exam: Clear to PA & Lateral, NORMAL BREATHING PATTERN. absent: Chest Wall Tenderness, Rhonchi, Wheezes - Cardiovascular Exam Cardiovascular Exam: REGULAR RHYTHM, RRR, +S1, +S2. absent: JVD - GI/Abdominal Exam GI & Abdominal Exam: Normal Bowel Sounds, Soft. absent: Tenderness - Neurological Exam Neurological exam: Alert, Normal Gait, Oriented x3 - Psychiatric Exam Psychiatric exam: Normal Affect, Normal Mood - Skin Skin Exam: Normal Color Discharge Plan - Discharge Medications Prescriptions: Sertraline [Zoloft] 50 mg PO DAILY #30 tab - Follow Up Plan Condition: FAIR Disposition: HOME/ ROUTINE Instructions: Chest Pain (DC)
--- NOTE | 2017-04-03 17:45 | CARD ---
APPROVED REPORT EKG Measurement Heart [id number] <Conclusion> Normal sinus rhythm Normal ECG
== END 2017-04-03 13:07 | disposition home or self-care (01) ==
LOC: H.ER 14:22 → H.ERHOLD 16:33 → H.TEL 21:23
PROVIDERS: ADMIT Family Medicine; ATTEND Family Medicine
DX: R07.89 Other chest pain (principal); E11.9 Type 2 diabetes mellitus without complications; E78.5 Hyperlipidemia, unspecified; E78.00 Pure hypercholesterolemia, unspecified; E87.5 Hyperkalemia; E89.0 Postprocedural hypothyroidism; F39 Unspecified mood [affective] disorder; F41.9 Anxiety disorder, unspecified; I10 Essential (primary) hypertension; Z79.82 Long term (current) use of aspirin; Z79.84 Long term (current) use of oral hypoglycemic drugs; Z79.899 Other long term (current) drug therapy; Z83.3 Family history of diabetes mellitus; Z85.850 Personal history of malignant neoplasm of thyroid; Z86.711 Personal history of pulmonary embolism; Z87.891 Personal history of nicotine dependence; Z98.51 Tubal ligation status; J40 Bronchitis, not specified as acute or chronic
CPT/HCPCS: 36415; 71010; 80048; 80053; 80061; 82948; 83735; 84443; 84484; 85025; 85610; 85730; 93005; 96372; 99285; G0378; J1650; J3475

== ENCOUNTER 2017-04-16 05:14 | Emergency (ER) | payer MEDICAID ==
[2017-04-16 05:15] VITALS: BMI 30.5
[2017-04-16 05:24] VITALS: RESP 16
--- NOTE | 2017-04-16 06:01 | ED PDOC ---
HPI: General Adult Time Seen by Provider: 04/16/17 05:32 Chief Complaint (Nursing): Dizziness/Lightheaded Chief Complaint (Provider): Dizziness/Weakness History Per: Patient History/Exam Limitations: no limitations Onset/Duration Of Symptoms: Days (x9) Current Symptoms Are (Timing): Still Present Additional Complaint(s): Berenice Kaye is a 56 year old female with a past medical history of HTN , PE, diabetes, and hypothyroidism who presents to the ED with a sense of dizziness and weakness x9 days. Patient reports the anti-hypertensive that she previously used was recently discontinued after being admitted to hospital for 2 days. At that time patient was made aware of elevated potassium levels and advised to stop taking Ramipril. States since stopping Ramipril she has a sense of dizziness and feels concerned. Also reports intermittent chest pain. Denies any nausea, vomiting, and diaphoresis. Patient reports feeling stressed regarding her father who was recently admitted to the hospital and transferred to a [facility] care facility. PMD: Vanessa Damon MD Past Medical History Reviewed: Historical Data, Nursing Documentation, Vital Signs Vital Signs: Last Vital Signs Temp 98.7 F 04/16/17 05:21 Pulse 80 04/16/17 05:21 Resp 16 04/16/17 05:21 BP 162/94 H 04/16/17 05:21 Pulse Ox 98 04/16/17 06:07 - Medical History PMH: Anxiety, Bronchitis, Diabetes, HTN, Hypercholesterolemia, Hyperlipidemia, Hypothyroidism, Pulmonary Embolism Denies: HIV, Chronic Kidney Disease - Surgical History Surgical History: No Surg Hx - Family History Family History: States: Unknown Family Hx - Social History Current smoker - smoking cessation education provided: No Alcohol: None Drugs: Denies - Immunization History Hx Tetanus Toxoid Vaccination: No Hx Influenza Vaccination: No Hx Pneumococcal Vaccination: No - Home Medications Home Medications: Ambulatory Orders Medication Instructions Recorded Glimepiride [Amaryl] 4 mg PO DAILY 05/20/15 Metformin HCl 1,000 mg PO BID 05/20/15 Simvastatin 20 mg PO DAILY 06/11/15 Levothyroxine [Synthroid] 75 mcg PO DAILY 04/02/17 Sertraline [Zoloft] 50 mg PO DAILY #30 tab 04/03/17 - Allergies Allergies/Adverse Reactions: Allergies Allergy/AdvReac Type Severity Reaction Status Date / Time Iodine and Iodide Containing Allergy RASH Verified 01/02/17 08:20 Produc JCARLOS Inhibitors AdvReac Hyperkalemi Verified 04/03/17 10:09 a Review of Systems ROS Statement: Except As Marked, All Systems Reviewed And Found Negative Constitutional: Positive for: Weakness. Negative for: Sweats Gastrointestinal: Negative for: Nausea, Vomiting Neurological: Positive for: Dizziness Physical Exam - Reviewed Nursing Documentation Reviewed: Yes Vital Signs Reviewed: Yes - Physical Exam Appears: Positive for: Well, Non-toxic, No Acute Distress Head Exam: Positive for: ATRAUMATIC, NORMAL INSPECTION, NORMOCEPHALIC Skin: Positive for: Normal Color, Warm, Dry Eye Exam: Positive for: EOMI, Normal appearance, PERRL Neck: Positive for: Normal, Painless ROM, Supple Cardiovascular/Chest: Positive for: Regular Rate, Rhythm. Negative for: Murmur Respiratory: Positive for: Normal Breath Sounds. Negative for: Respiratory Distress Gastrointestinal/Abdominal: Positive for: Normal Exam, Bowel Sounds, Soft. Negative for: Tenderness Back: Positive for: Normal Inspection. Negative for: L CVA Tenderness, R CVA Tenderness, Vertebral Tenderness Extremity: Positive for: Normal ROM. Negative for: Pedal Edema, Deformity Neurologic/Psych: Positive for: Alert, Oriented. Negative for: Motor/Sensory Deficits - Laboratory Results Result Diagrams: 04/16/17 06:06 - ECG O2 Sat by Pulse Oximetry: 98 (RA) Pulse Ox Interpretation: Normal Medical Decision Making Medical Decision Making: Time: 05:48 Initial Impression: 56 y/o female with generalized dizziness and weakness in setting of recent change in her anti-hypertensive regimen Plan: --EKG --CMP --Troponin I --CBC w/ differential --Heplock insertion --Accucheck --Reevaluation Patient signed out to Dr Robison at 7AM pending labs Scribe Attestation: Documented by Cristian Bempong acting as a scribe for Moshe Rodriguez MD. Scribe Attestation: All medical record entries made by the Scribe were at my direction and personally dictated by me. I have reviewed the chart and agree that the record accurately reflects my personal performance of the history, physical exam, medical decision making, and the department course for this patient. I have also personally directed, reviewed, and agree with the discharge instructions and disposition. Disposition - Clinical Impression Clinical Impression: Dizziness - Patient ED Disposition Is Patient to be Admitted: Transfer of Care - Disposition Disposition: Transfer of Care Disposition Time: 07:00 Condition: FAIR Forms: [employer] (Telugu) Patient Signed Over To: Artem Robison
[2017-04-16 06:22] LABS: BASO % 0.5 % (0.0-2.0); EOS # 0.1 K/uL (0.0-0.7); EOS % 2.6 % (0.0-4.0); HEMATOCRIT 41.1 % (34.0-47.0); LYMPH # 1.5 K/uL (1.0-4.3); LYMPH % 33.9 % (20.0-40.0); MEAN CELL VOLUME 85.6 fl (81.0-99.0); MEAN CORPUSCULAR HEMOGLOBIN 28.2 pg (27.0-31.0); MEAN CORPUSCULAR HGB CONC 32.9 g/dL (33.0-37.0); MEAN PLATELET VOLUME 8.7 fl (7.2-11.7); MONO # 0.4 K/uL (0.0-0.8); MONO % 9.5 % (0.0-10.0); NEUT # 2.4 K/uL (1.8-7.0); NEUT % 53.5 % (50.0-75.0); NRBC % 0.1 % (0.0-0.0); WHITE BLOOD COUNT 4.4 K/uL (4.8-10.8)
--- NOTE | 2017-04-16 07:09 | ED PDOC ---
- Laboratory Results Result Diagrams: 04/16/17 06:06 - ECG O2 Sat by Pulse Oximetry: 98 (RA) Medical Decision Making Medical Decision Makin -Patient transferred to ms by Dr. Rodriguez, pending labs. Disposition - Clinical Impression Clinical Impression: Dizziness - Disposition Condition: FAIR Forms: [employer] (Czech)
[2017-04-16 07:27] LABS: ALB/GLOB RATIO 1.4 (1.0-2.1); ALKALINE PHOSPHATASE 47 U/L (38-126); ALT/SGPT 37 U/L (9-52); AST/SGOT 34 U/L (14-36); BILIRUBIN,TOTAL 0.6 mg/dl (0.2-1.3); BLOOD UREA NITROGEN 14 mg/dl (7-17); CALCIUM 9.6 mg/dL (8.4-10.2); CARBON DIOXIDE 28 mmol/L (22-30); CHLORIDE 105 mmol/L (98-107); GFR AFRICAN-AMERICAN > 60; GLUCOSE,RANDOM 151 mg/dL (65-105); POTASSIUM 4.3 MMOL/L (3.6-5.0); SODIUM 145 mmol/l (132-148); TOTAL PROTEIN 7.4 G/DL (6.3-8.2)
[2017-04-16 08:57] VITALS: BP 149/77; PULSE 66; TEMP 98.9; O2SAT 99
--- NOTE | 2017-04-16 10:43 | CARD ---
APPROVED REPORT EKG Measurement Heart [id number] <Conclusion> Normal sinus rhythm Normal ECG
== END 2017-04-16 09:46 | disposition home or self-care (01) ==
LOC: H.ER 05:14
DX: R42 Dizziness and giddiness (principal); I10 Essential (primary) hypertension; E03.9 Hypothyroidism, unspecified; E11.9 Type 2 diabetes mellitus without complications; E78.00 Pure hypercholesterolemia, unspecified; F41.9 Anxiety disorder, unspecified; Z86.711 Personal history of pulmonary embolism

== ENCOUNTER 2017-06-18 21:22 | Emergency (ER) | payer MEDICAID ==
[2017-06-18 22:58] VITALS: PULSE 78; RESP 16; TEMP 97; O2SAT 96
[2017-06-18 23:00] VITALS: BP 175/86; BMI 28.4
--- NOTE | 2017-06-19 00:30 | ED PDOC ---
HPI: General Adult Time Seen by Provider: 06/18/17 23:38 Chief Complaint (Nursing): Flu-like Symptoms Chief Complaint (Provider): Flu-like Symptoms History Per: Patient History/Exam Limitations: no limitations Onset/Duration Of Symptoms: Days (x 1) Current Symptoms Are (Timing): Still Present Additional Complaint(s): Berenice is a 56 y/o female who was exposed to the flu 3 days ago and now presents to the ED complaining of sore throat, chills, body aches, and fever. She is concerned she has the flu. PMD: None Provided Past Medical History Reviewed: Historical Data, Nursing Documentation, Vital Signs Vital Signs: Last Vital Signs Temp 97.0 F L 06/18/17 22:58 Pulse 78 06/18/17 22:58 Resp 16 06/18/17 22:58 BP 175/86 H 06/18/17 22:59 Pulse Ox 96 06/19/17 01:11 - Medical History PMH: Anxiety, Bronchitis, Diabetes, HTN, Hypercholesterolemia, Hyperlipidemia, Hypothyroidism, Pulmonary Embolism Denies: HIV, Chronic Kidney Disease - Family History Family History: States: Unknown Family Hx - Immunization History Hx Tetanus Toxoid Vaccination: No Hx Influenza Vaccination: No Hx Pneumococcal Vaccination: No - Home Medications Home Medications: Ambulatory Orders Medication Instructions Recorded Glimepiride [Amaryl] 4 mg PO DAILY 05/20/15 Metformin HCl 1,000 mg PO BID 05/20/15 Simvastatin 20 mg PO DAILY 06/11/15 Levothyroxine [Synthroid] 75 mcg PO DAILY 04/02/17 Sertraline [Zoloft] 50 mg PO DAILY #30 tab 04/03/17 Oseltamivir Phosphate [Tamiflu] 75 mg PO BID 5 Days #10 capsule 06/19/17 - Allergies Allergies/Adverse Reactions: Allergies Allergy/AdvReac Type Severity Reaction Status Date / Time Iodine and Iodide Containing Allergy RASH Verified 01/02/17 08:20 Produc JCARLOS Inhibitors AdvReac Hyperkalemi Verified 04/03/17 10:09 a Review of Systems ROS Statement: Except As Marked, All Systems Reviewed And Found Negative Constitutional: Positive for: Fever, Chills, Malaise ENT: Positive for: Throat Pain Physical Exam - Reviewed Nursing Documentation Reviewed: Yes Vital Signs Reviewed: Yes - Physical Exam Appears: Positive for: Well, Non-toxic, No Acute Distress Head Exam: Positive for: ATRAUMATIC, NORMAL INSPECTION, NORMOCEPHALIC Skin: Positive for: Normal Color, Warm, Dry Eye Exam: Positive for: EOMI, Normal appearance, PERRL ENT: Positive for: Normal ENT Inspection Neck: Positive for: Normal, Painless ROM, Supple Cardiovascular/Chest: Positive for: Regular Rate, Rhythm. Negative for: Murmur Respiratory: Positive for: Normal Breath Sounds. Negative for: Respiratory Distress Gastrointestinal/Abdominal: Positive for: Normal Exam, Bowel Sounds, Soft. Negative for: Tenderness Back: Positive for: Normal Inspection Extremity: Positive for: Normal ROM. Negative for: Pedal Edema, Deformity Neurologic/Psych: Positive for: Alert, Oriented - ECG O2 Sat by Pulse Oximetry: 96 (RA) Pulse Ox Interpretation: Normal Medical Decision Making Medical Decision Making: Time: 23:41 Initial Impression: Influenza Initial Plan: --Motrin --Tamiflu --Flu Swab Time: 00:39 --Flu Swab: Negative for A/B Time: 2:04 --Patient stable for discharge home Scribe Attestation: Documented by Filipe Loomis, acting as a scribe for Dr. Jose Kerns MD Provider Scribe Attestation: All medical record entries made by the Scribe were at my direction and personally dictated by me. I have reviewed the chart and agree that the record accurately reflects my personal performance of the history, physical exam, medical decision making, and the department course for this patient. I have also personally directed, reviewed, and agree with the discharge instructions and disposition. Disposition - Clinical Impression Clinical Impression: Influenza - Patient ED Disposition Is Patient to be Admitted: No Counseled Patient/Family Regarding: Studies Performed, Diagnosis, Rx Given - Disposition Referrals: Nino Lino MD [Family Provider] - Disposition: Routine/Home Disposition Time: 02:04 Condition: STABLE Prescriptions: Oseltamivir Phosphate [Tamiflu] 75 mg PO BID 5 Days #10 capsule Instructions: Influenza (ED) Forms: [employer] (Irish)
== END 2017-06-19 02:25 | disposition home or self-care (01) ==
LOC: H.ER 21:22
DX: J11.1 Influenza due to unidentified influenza virus with other respiratory manifestations (principal); I10 Essential (primary) hypertension; E11.9 Type 2 diabetes mellitus without complications; Z79.84 Long term (current) use of oral hypoglycemic drugs; Z86.711 Personal history of pulmonary embolism

== ENCOUNTER 2017-09-24 10:06 | Emergency (ER) | payer MEDICAID ==
[2017-09-24 10:11] VITALS: BMI 29.3
[2017-09-24 10:20] VITALS: RESP 18
--- NOTE | 2017-09-24 11:33 | ED PDOC ---
HPI: General Adult Time Seen by Provider: 09/24/17 10:18 Chief Complaint (Nursing): Chest Pain Chief Complaint (Provider): Tremulous History Per: Patient Onset/Duration Of Symptoms: Days (x2 months) Current Symptoms Are (Timing): Still Present Additional Complaint(s): Berenice Kaye is a 57 year old female, with a past medical history of HTN, hypothyroidism and diabetes, who presents to the emergency department complaining of not feeling well onset for x2 months. Patient reports feeling tremulous and having a lot of energy "going down her leg" and doesn't know what to do with it. Patient also reports having hot flashes and feeling overwhelmed. She denies any suicidal or homicidal ideation, no fever, chills, nausea, vomit, or diarrhea. No further medical complaints. PMD: None provided. Past Medical History Reviewed: Historical Data, Nursing Documentation, Vital Signs Vital Signs: Last Vital Signs Temp 98.9 F 09/24/17 13:58 Pulse 79 09/24/17 13:58 Resp 18 09/24/17 13:58 BP 133/75 09/24/17 13:58 Pulse Ox 98 09/24/17 13:58 - Medical History PMH: Anxiety, Bronchitis, Diabetes, HTN, Hypercholesterolemia, Hyperlipidemia, Hypothyroidism, Pulmonary Embolism Denies: HIV, Chronic Kidney Disease - Surgical History Surgical History: No Surg Hx - Family History Family History: States: Unknown Family Hx - Social History Ex-Smoker (has not smoked in the last 12 months): Yes Alcohol: None Drugs: Denies - Immunization History Hx Tetanus Toxoid Vaccination: No Hx Influenza Vaccination: No Hx Pneumococcal Vaccination: No - Home Medications Home Medications: Ambulatory Orders Medication Instructions Recorded Glimepiride [Amaryl] 4 mg PO DAILY 05/20/15 Metformin HCl 1,000 mg PO BID 05/20/15 Simvastatin 20 mg PO DAILY 06/11/15 Levothyroxine [Synthroid] 75 mcg PO DAILY 04/02/17 Sertraline [Zoloft] 50 mg PO DAILY #30 tab 04/03/17 Oseltamivir Phosphate [Tamiflu] 75 mg PO BID 5 Days #10 capsule 06/19/17 - Allergies Allergies/Adverse Reactions: Allergies Allergy/AdvReac Type Severity Reaction Status Date / Time Iodine and Iodide Containing Allergy RASH Verified 01/02/17 08:20 Produc JCARLOS Inhibitors AdvReac Hyperkalemi Verified 04/03/17 10:09 a Review of Systems ROS Statement: Except As Marked, All Systems Reviewed And Found Negative Constitutional: Positive for: Other (hot flashes). Negative for: Fever, Chills Gastrointestinal: Negative for: Nausea, Vomiting, Diarrhea Psych: Positive for: Other (tremulous ). Negative for: Suicidal ideation ( homicidal ideation) Physical Exam - Reviewed Nursing Documentation Reviewed: Yes Vital Signs Reviewed: Yes - Physical Exam Appears: Positive for: Non-toxic, No Acute Distress Head Exam: Positive for: ATRAUMATIC, NORMOCEPHALIC Skin: Positive for: Normal Color, Warm, Dry Eye Exam: Positive for: Normal appearance, EOMI, PERRL Neck: Positive for: Painless ROM Cardiovascular/Chest: Positive for: Regular Rate, Rhythm. Negative for: Murmur Respiratory: Positive for: Normal Breath Sounds. Negative for: Respiratory Distress Gastrointestinal/Abdominal: Positive for: Normal Exam, Soft. Negative for: Tenderness Back: Positive for: Normal Inspection. Negative for: L CVA Tenderness, R CVA Tenderness, Vertebral Tenderness Extremity: Positive for: Normal ROM (upper and lower extremities). Negative for : Deformity, Swelling Neurologic/Psych: Positive for: Alert, Oriented. Negative for: Motor/Sensory Deficits - Laboratory Results Result Diagrams: 09/24/17 11:30 09/24/17 11:30 - ECG ECG Rhythm: Positive for: Sinus Rhythm Rate: 67 O2 Sat by Pulse Oximetry: 97 (RA) Pulse Ox Interpretation: Normal Medical Decision Making Medical Decision Making: Initial Impression: agitation, feeling restless, R/o thyroid abnormality, anxiety, infection Initial Plan: --CMP --T4 --TSH --Troponin I --CBC w/ differential --Chest portable [RAD] --Urine C&S --Urinalysis --Reevaluation 11:51 CXR FINDINGS: LUNGS: No active pulmonary disease. PLEURA: No significant pleural effusion identified, no pneumothorax apparent. CARDIOVASCULAR: No radiographic findings to suggest acute or significant cardiovascular disease. OSSEOUS STRUCTURES: No significant abnormalities. VISUALIZED UPPER ABDOMEN: Normal. OTHER FINDINGS: None. IMPRESSION: No active disease. No significant interval change compared to the prior examination(s). cxr and bloodwork unremarkable. pt reevaluated, feels better and is calmer. discussed results w patients. 13:40 -Patient is medically and psychiatrically clear for discharge. diagnosed with anxiety per Dr. Patrick. Counseling was provided and all questions were answered regarding diagnosis and need for follow up with PMD in 2 days. There is agreement to discharge plan. Return if symptoms persist or worsen. Scribe Attestation: Documented by Jeremy Chow, acting as a scribe for Zackery Lamar MD Provider Scribe Attestation: All medical record entries made by the Scribe were at my direction and personally dictated by me. I have reviewed the chart and agree that the record accurately reflects my personal performance of the history, physical exam, medical decision making, and the department course for this patient. I have also personally directed, reviewed, and agree with the discharge instructions and disposition. Disposition - Clinical Impression Clinical Impression: Anxiety - Patient ED Disposition Is Patient to be Admitted: No Counseled Patient/Family Regarding: Studies Performed, Diagnosis, Need For Followup - Disposition Referrals: [facility] [Outside] [facility] [Outside] Disposition: Routine/Home Disposition Time: 13:15 Condition: IMPROVED Additional Instructions: follow up with your primary doctor in 1-2 days return to the ED with any worsening or concerning symptoms Instructions: Anxiety, Adult (DC) Forms: [facility] ([place])
[2017-09-24 11:43] LABS: BASO % 0.4 % (0.0-2.0); EOS # 0.1 K/uL (0.0-0.7); EOS % 2.3 % (0.0-4.0); HEMOGLOBIN 13.9 g/dL (12.0-16.0); LYMPH # 1.6 K/uL (1.0-4.3); LYMPH % 28.5 % (20.0-40.0); MEAN CELL VOLUME 84.8 fl (81.0-99.0); MEAN CORPUSCULAR HEMOGLOBIN 28.9 pg (27.0-31.0); MEAN CORPUSCULAR HGB CONC 34.1 g/dL (33.0-37.0); MEAN PLATELET VOLUME 8.5 fl (7.2-11.7); MONO # 0.4 K/uL (0.0-0.8); MONO % 8.1 % (0.0-10.0); NEUT # 3.3 K/uL (1.8-7.0); NEUT % 60.7 % (50.0-75.0); NRBC % 0.2 % (0.0-0.0); RBC 4.8 Mil/uL (3.80-5.20); RED CELL DISTRIBUTION WIDTH 14.3 % (11.5-14.5); WHITE BLOOD COUNT 5.5 K/uL (4.8-10.8)
--- NOTE | 2017-09-24 11:53 | RAD ---
HISTORY: anxiety COMPARISON: 04/02/2017 FINDINGS: LUNGS: No active pulmonary disease. PLEURA: No significant pleural effusion identified, no pneumothorax apparent. CARDIOVASCULAR: No radiographic findings to suggest acute or significant cardiovascular disease. OSSEOUS STRUCTURES: No significant abnormalities. VISUALIZED UPPER ABDOMEN: Normal. OTHER FINDINGS: None. IMPRESSION: No active disease. No significant interval change compared to the prior examination(s).
[2017-09-24 11:56] LABS: URINE BILIRUBIN NEGATIVE (NEGATIVE); URINE BLOOD NEGATIVE (NEGATIVE); URINE CLARITY CLEAR (Clear); URINE COLOR YELLOW (YELLOW); URINE GLUCOSE (UA) NEG (Normal); URINE LEUKOCYTE ESTERASE TRACE Leu/uL (Negative); URINE PROTEIN NEGATIVE (NEGATIVE); URINE UROBILINOGEN 0.2-1.0 mg/dL (0.2-1.0)
[2017-09-24 12:17] LABS: T4 9.12 ug/dl (5.5-11.0)
[2017-09-24 12:27] LABS: ALB/GLOB RATIO 1.3 (1.0-2.1); ALBUMIN 4.6 g/dL (3.5-5.0); ALT/SGPT 33 U/L (9-52); AST/SGOT 29 U/L (14-36); BLOOD UREA NITROGEN 19 mg/dl (7-17); CALCIUM 10.3 mg/dL (8.4-10.2); GFR AFRICAN-AMERICAN > 60; GFR NON-AFRICAN AMERICAN > 60
[2017-09-24 14:01] VITALS: BP 133/75; TEMP 98.9
[2017-09-24 14:47] VITALS: PULSE 67; O2SAT 97
== END 2017-09-24 14:00 | disposition home or self-care (01) ==
LOC: H.ER 10:06
DX: F41.9 Anxiety disorder, unspecified (principal); E03.9 Hypothyroidism, unspecified; E11.9 Type 2 diabetes mellitus without complications; E78.00 Pure hypercholesterolemia, unspecified; I10 Essential (primary) hypertension; Z79.84 Long term (current) use of oral hypoglycemic drugs; Z86.711 Personal history of pulmonary embolism

== ENCOUNTER 2017-12-14 07:40 | Emergency (ER) | payer MEDICAID ==
[2017-12-14 07:40] VITALS: BMI 29.3
[2017-12-14] MEDS ORDERED: Sodium Chloride 0.9% 1,000 ML IV STA (08:49)
--- NOTE | 2017-12-14 08:53 | ED PDOC ---
HPI: Abdomen Time Seen by Provider: 12/14/17 08:39 Chief Complaint (Nursing): GI Problem Chief Complaint (Provider): abdominal pain History Per: Patient History/Exam Limitations: no limitations Onset/Duration Of Symptoms: Hrs (this morning) Current Symptoms Are (Timing): Still Present Location Of Pain/Discomfort: Epigastric Associated Symptoms: Nausea, Vomiting. denies: Fever, Chills, Diarrhea Additional Complaint(s): Berenice Kaye is a 57 year old female, with a past medical history of diabetes, who presents to the emergency department complaining of an epigastric pain associated with nausea and vomiting x2 onset since this morning. Patient denies any fever, chills or diarrhea. No further medical complaints. PMD: None provided. Past Medical History Reviewed: Historical Data, Nursing Documentation, Vital Signs Vital Signs: Last Vital Signs Temp 98.2 F 12/14/17 07:46 Pulse 83 12/14/17 07:46 Resp 19 12/14/17 07:46 BP 147/74 12/14/17 07:46 Pulse Ox 98 12/14/17 08:55 - Medical History PMH: Anxiety, Bronchitis, Diabetes, HTN, Hypercholesterolemia, Hyperlipidemia, Hypothyroidism, Pulmonary Embolism Denies: Hepatitis, HIV, Chronic Kidney Disease, Seizures, Sexually Transmitted Disease - Surgical History Surgical History: No Surg Hx - Family History Family History: States: Unknown Family Hx - Social History Current smoker - smoking cessation education provided: No Alcohol: None Drugs: Denies - Immunization History Hx Tetanus Toxoid Vaccination: No Hx Influenza Vaccination: No Hx Pneumococcal Vaccination: No - Home Medications Home Medications: Ambulatory Orders Medication Instructions Recorded Glimepiride [Amaryl] 4 mg PO DAILY 05/20/15 Metformin HCl 1,000 mg PO BID 05/20/15 Simvastatin 20 mg PO DAILY 06/11/15 Levothyroxine [Synthroid] 75 mcg PO DAILY 04/02/17 Sertraline [Zoloft] 50 mg PO DAILY #30 tab 04/03/17 Oseltamivir Phosphate [Tamiflu] 75 mg PO BID 5 Days #10 capsule 06/19/17 Famotidine [Pepcid] 20 mg PO Q12 #20 tab 12/14/17 Ondansetron [Zofran] 4 mg PO Q8H #10 tab 12/14/17 - Allergies Allergies/Adverse Reactions: Allergies Allergy/AdvReac Type Severity Reaction Status Date / Time Iodine and Iodide Containing Allergy RASH Verified 01/02/17 08:20 Produc JCARLOS Inhibitors AdvReac Hyperkalemi Verified 04/03/17 10:09 a Review of Systems ROS Statement: Except As Marked, All Systems Reviewed And Found Negative Constitutional: Negative for: Fever, Chills Gastrointestinal: Positive for: Nausea, Vomiting, Abdominal Pain. Negative for : Diarrhea, Hematochezia Physical Exam - Reviewed Nursing Documentation Reviewed: Yes Vital Signs Reviewed: Yes - Physical Exam Appears: Positive for: Non-toxic, No Acute Distress Head Exam: Positive for: ATRAUMATIC, NORMAL INSPECTION, NORMOCEPHALIC Skin: Positive for: Normal Color, Warm, Dry Eye Exam: Positive for: Normal appearance, EOMI, PERRL ENT: Positive for: Normal ENT Inspection (mucous membranes moist) Neck: Positive for: Painless ROM Cardiovascular/Chest: Positive for: Regular Rate, Rhythm. Negative for: Murmur Respiratory: Positive for: Normal Breath Sounds. Negative for: Respiratory Distress Gastrointestinal/Abdominal: Positive for: Tenderness (mild epigastric) Extremity: Positive for: Normal ROM (full ROM on all extremities). Negative for : Deformity, Swelling Neurologic/Psych: Positive for: Alert, Oriented. Negative for: Motor/Sensory Deficits - Laboratory Results Result Diagrams: 12/14/17 09:39 12/14/17 09:39 - ECG O2 Sat by Pulse Oximetry: 98 (RA) Pulse Ox Interpretation: Normal - Progress Re-evaluation Time: 11:01 Condition: Improved Medical Decision Making Medical Decision Making: Time: 08:39 Initial Plan: --CMP --Urine dipstick --CBC w/ differential --Sodium Chloride 1,000 ml IV 150 mls/hr --Zofran Inj 4 mg IVP --Reevaluation ----- Scribe Attestation: Documented by Jeremy Chow, acting as a scribe for Shaun Allen MD. Provider Scribe Attestation: All medical record entries made by the Scribe were at my direction and personally dictated by me. I have reviewed the chart and agree that the record accurately reflects my personal performance of the history, physical exam, medical decision making, and the department course for this patient. I have also personally directed, reviewed, and agree with the discharge instructions and disposition. Disposition - Clinical Impression Clinical Impression: Gastroenteritis - Patient ED Disposition Is Patient to be Admitted: No Counseled Patient/Family Regarding: Studies Performed, Diagnosis, Need For Followup, Rx Given - Disposition Referrals: [facility] [Outside] Disposition: Routine/Home Disposition Time: 11:01 Condition: FAIR Prescriptions: Famotidine [Pepcid] 20 mg PO Q12 #20 tab Ondansetron [Zofran] 4 mg PO Q8H #10 tab Instructions: Viral Gastroenteritis Forms: [facility] (Iranian)
[2017-12-14 09:52] LABS: BASO % 0.2 % (0.0-2.0); EOS # 0.1 K/uL (0.0-0.7); EOS % 1.2 % (0.0-4.0); HEMOGLOBIN 13.8 g/dL (12.0-16.0); LYMPH # 0.6 K/uL (1.0-4.3); MEAN CELL VOLUME 86.1 fl (81.0-99.0); MEAN CORPUSCULAR HEMOGLOBIN 28.7 pg (27.0-31.0); MEAN CORPUSCULAR HGB CONC 33.4 g/dL (33.0-37.0); MEAN PLATELET VOLUME 8.5 fl (7.2-11.7); MONO # 0.4 K/uL (0.0-0.8); NEUT % 82.6 % (50.0-75.0); NRBC % 0.1 % (0.0-0.0); RBC 4.81 Mil/uL (3.80-5.20); RED CELL DISTRIBUTION WIDTH 14.3 % (11.5-14.5)
[2017-12-14 10:00] LABS: ALB/GLOB RATIO 1.3 (1.0-2.1); ALBUMIN 4.2 g/dL (3.5-5.0); ALT/SGPT 27 U/L (9-52); AST/SGOT 30 U/L (14-36); BLOOD UREA NITROGEN 21 mg/dl (7-17); CALCIUM 9.2 mg/dL (8.4-10.2); GFR AFRICAN-AMERICAN > 60; GFR NON-AFRICAN AMERICAN > 60
[2017-12-14 11:21] VITALS: BP 144/80; PULSE 67; RESP 18; TEMP 99.1; O2SAT 100
== END 2017-12-14 11:29 | disposition home or self-care (01) ==
LOC: H.ER 07:40
DX: K52.9 Noninfective gastroenteritis and colitis, unspecified (principal); E03.9 Hypothyroidism, unspecified; E11.9 Type 2 diabetes mellitus without complications; E78.00 Pure hypercholesterolemia, unspecified; I10 Essential (primary) hypertension; Z79.84 Long term (current) use of oral hypoglycemic drugs; Z86.711 Personal history of pulmonary embolism
CPT/HCPCS: 80053; 85025; 96361; 96374; 99285; J2405; J7030

== ENCOUNTER 2017-12-24 16:04 | Emergency (ER) | payer MEDICAID, OTHER ==
[2017-12-24 16:04] VITALS: BMI 29.3
[2017-12-24] MEDS ORDERED: Sodium Chloride 0.9% 1,000 ML IV STA (17:39)
--- NOTE | 2017-12-24 17:51 | ED PDOC ---
HPI: Female Pain Time Seen by Provider: 12/24/17 16:25 Chief Complaint (Nursing): Female Genitourinary Chief Complaint (Provider): Female Genitourinary History Per: Patient History/Exam Limitations: no limitations Onset/Duration Of Symptoms: Intermittent Episodes (x2 months), Worse Since (x1 day) Current Symptoms Are (Timing): Still Present Additional Complaint(s): 57 year old female arrives to ED for an evaluation after she saw blood when wiping after urinating this morning. She reports associated dysuria, lower back pain and tactile fever ongoing for the last 2 months. Patient was seen recently in ED 2 weeks ago and discharged with antibiotics which improved symptoms but back pain persisted. She denies any nausea, vomiting, diarrhea or abdominal pain. PMD: Dr. Ade Houser Past Medical History Reviewed: Historical Data, Nursing Documentation, Vital Signs Vital Signs: Last Vital Signs Temp 99 F 12/24/17 16:10 Pulse 79 12/24/17 16:10 Resp 18 12/24/17 16:10 BP 140/78 12/24/17 16:10 Pulse Ox 98 12/24/17 16:10 - Medical History PMH: Anxiety, Bronchitis, Diabetes, HTN, Hypercholesterolemia, Hyperlipidemia, Hypothyroidism, Pulmonary Embolism Denies: Hepatitis, HIV, Chronic Kidney Disease, Seizures, Sexually Transmitted Disease - Surgical History Other surgeries: tubal ligation - Family History Family History: States: Unknown Family Hx - Social History Current smoker - smoking cessation education provided: No Ex-Smoker (has not smoked in the last 12 months): Yes (x9 years) Alcohol: None Drugs: Denies - Immunization History Hx Tetanus Toxoid Vaccination: No Hx Influenza Vaccination: No Hx Pneumococcal Vaccination: No - Home Medications Home Medications: Ambulatory Orders Medication Instructions Recorded Glimepiride [Amaryl] 4 mg PO DAILY 05/20/15 Metformin HCl 1,000 mg PO BID 05/20/15 Simvastatin 20 mg PO DAILY 06/11/15 Levothyroxine [Synthroid] 75 mcg PO DAILY 04/02/17 Sertraline [Zoloft] 50 mg PO DAILY #30 tab 04/03/17 Oseltamivir Phosphate [Tamiflu] 75 mg PO BID 5 Days #10 capsule 06/19/17 Famotidine [Pepcid] 20 mg PO Q12 #20 tab 12/14/17 Ondansetron [Zofran] 4 mg PO Q8H #10 tab 12/14/17 Ciprofloxacin [Cipro] 500 mg PO Q12 #14 tab 12/24/17 - Allergies Allergies/Adverse Reactions: Allergies Allergy/AdvReac Type Severity Reaction Status Date / Time Iodine and Iodide Containing Allergy RASH Verified 12/24/17 16:13 Produc JCARLOS Inhibitors AdvReac Hyperkalemi Verified 12/24/17 16:13 a Review of Systems ROS Statement: Except As Marked, All Systems Reviewed And Found Negative Constitutional: Positive for: Fever (tactile) Gastrointestinal: Negative for: Nausea, Vomiting, Abdominal Pain, Diarrhea Genitourinary Female: Positive for: Dysuria, Vaginal Bleeding Musculoskeletal: Positive for: Back Pain (lower) Physical Exam - Reviewed Nursing Documentation Reviewed: Yes Vital Signs Reviewed: Yes - Physical Exam Appears: Positive for: Well, Non-toxic, No Acute Distress Head Exam: Positive for: ATRAUMATIC, NORMAL INSPECTION, NORMOCEPHALIC Skin: Positive for: Normal Color Eye Exam: Positive for: Normal appearance ENT: Positive for: Normal ENT Inspection Neck: Positive for: Normal Cardiovascular/Chest: Positive for: Regular Rate, Rhythm Respiratory: Positive for: Normal Breath Sounds. Negative for: Respiratory Distress Gastrointestinal/Abdominal: Positive for: Soft, Tenderness (LLQ) Pelvic Exam: Positive for: External Exam Normal, Speculum Exam Normal, Other ( nurse was principal gifts officer chace hussein). Negative for: Active Bleeding, Blood, Discharge Back: Positive for: L CVA Tenderness, R CVA Tenderness Extremity: Positive for: Normal ROM (upper/lower) Neurologic/Psych: Positive for: Alert (x3), Oriented Comments: VÍCTOR Hussein as principal gifts officer for exam. - Laboratory Results Result Diagrams: 12/24/17 17:45 12/24/17 17:45 - ECG O2 Sat by Pulse Oximetry: 98 (RA) Pulse Ox Interpretation: Normal Medical Decision Making Medical Decision Making: Initial Impression: Dysuria rule out stone/pyelonephritis, uti, electrolyte abnormality Initial Plan: * CT ABD/pelvis without contrast * CMP * CBC * NS 1,000ml IV per 999mls/hr * Toradol 30mg IV * Urine C&S * UA 1820 CT Abdomen/Pelvis FINDINGS: LOWER THORAX: Unremarkable. LIVER: Unremarkable. No gross lesion or ductal dilatation. GALLBLADDER AND BILE DUCTS: Unremarkable. PANCREAS: Unremarkable. No gross lesion or ductal dilatation. SPLEEN: Unremarkable. ADRENALS: Unremarkable. No mass. KIDNEYS AND URETERS: Unremarkable. No hydronephrosis. No solid mass. No renal or ureteral calculus. VASCULATURE: Unremarkable. No aortic aneurysm. BOWEL: Unremarkable. No obstruction. No gross mural thickening. APPENDIX: Unremarkable. Normal appendix. PERITONEUM: Unremarkable. No free fluid. No free air. LYMPH NODES: No retroperitoneal or pelvic lymphadenopathy. Shotty subcentimeter lymph nodes are seen throughout the small bowel mesenteric as well as medial to the cecum and ascending colon, consistent with nonspecific mesenteric adenitis. BLADDER: Decompressed REPRODUCTIVE: Uterus significant for peripherally calcified fibroid, 2.9 cm diameter. Probable additional isodense posterior subserosal fibroid not clearly delineated on the basis of this examination. BONES: Grade 1 anterolisthesis at L5-S1 with bilateral L5 spondylolysis. OTHER FINDINGS: None. IMPRESSION: No evidence of urinary calculus or urinary tract obstruction. Findings consistent with nonspecific mesenteric adenitis. Calcified uterine fibroid. No other significant abnormality. 1823 Pelvic exam unremarkable so US transvaginal ordered. UA reviewed, patient with mild UTI. Cippro 500mg PO given. 1899 Patient signed out to Dr. Rodriguez pending US study and reassessment. pt will need to go home on po abx Scribe Attestation: Documented by Desiree Lea, acting as a scribe for Zackery Lamar MD. Provider Scribe Attestation: All medical record entries made by the Scribe were at my direction and personally dictated by me. I have reviewed the chart and agree that the record accurately reflects my personal performance of the history, physical exam, medical decision making, and the department course for this patient. I have also personally directed, reviewed, and agree with the discharge instructions and disposition. Disposition - Clinical Impression Clinical Impression: UTI (urinary tract infection), Fibroids - Patient ED Disposition Is Patient to be Admitted: Transfer of Care Counseled Patient/Family Regarding: Studies Performed, Diagnosis - Disposition Disposition: Transfer of Care Disposition Time: 19:00 Condition: IMPROVED Prescriptions: Ciprofloxacin [Cipro] 500 mg PO Q12 #14 tab Instructions: Urinary Tract Infections in Adults, Uterine Fibroids Forms: [employer] [facility] ([place] Zealander) Patient Signed Over To: Moshe Rodriguez
[2017-12-24 18:02] LABS: BASO % 0.7 % (0.0-2.0); EOS # 0.2 K/uL (0.0-0.7); EOS % 2.2 % (0.0-4.0); HEMOGLOBIN 13.3 g/dL (12.0-16.0); LYMPH # 2.3 K/uL (1.0-4.3); LYMPH % 32.9 % (20.0-40.0); MEAN CELL VOLUME 86.2 fl (81.0-99.0); MEAN CORPUSCULAR HGB CONC 33.6 g/dL (33.0-37.0); MEAN PLATELET VOLUME 8.5 fl (7.2-11.7); MONO # 0.6 K/uL (0.0-0.8); MONO % 7.9 % (0.0-10.0); NEUT % 56.3 % (50.0-75.0); RBC 4.59 Mil/uL (3.80-5.20); RED CELL DISTRIBUTION WIDTH 14.2 % (11.5-14.5); WHITE BLOOD COUNT 7.1 K/uL (4.8-10.8)
--- NOTE | 2017-12-24 18:21 | CT ---
Date of service: 12/24/2017 PROCEDURE: CT Abdomen and Pelvis without intravenous contrast HISTORY: flank pain COMPARISON: 12/17/2013 TECHNIQUE: Without contrast.. Contrast dose: 0 Radiation dose: Total exam DLP = 826.45 mGy-cm. This CT exam was performed using one or more of the following dose reduction techniques: Automated exposure control, adjustment of the mA and/or kV according to patient size, and/or use of iterative reconstruction technique. FINDINGS: LOWER THORAX: Unremarkable. LIVER: Unremarkable. No gross lesion or ductal dilatation. GALLBLADDER AND BILE DUCTS: Unremarkable. PANCREAS: Unremarkable. No gross lesion or ductal dilatation. SPLEEN: Unremarkable. ADRENALS: Unremarkable. No mass. KIDNEYS AND URETERS: Unremarkable. No hydronephrosis. No solid mass. No renal or ureteral calculus. VASCULATURE: Unremarkable. No aortic aneurysm. BOWEL: Unremarkable. No obstruction. No gross mural thickening. APPENDIX: Unremarkable. Normal appendix. PERITONEUM: Unremarkable. No free fluid. No free air. LYMPH NODES: No retroperitoneal or pelvic lymphadenopathy. Shotty subcentimeter lymph nodes are seen throughout the small bowel mesenteric as well as medial to the cecum and ascending colon, consistent with nonspecific mesenteric adenitis. BLADDER: Decompressed REPRODUCTIVE: Uterus significant for peripherally calcified fibroid, 2.9 cm diameter. Probable additional isodense posterior subserosal fibroid not clearly delineated on the basis of this examination. BONES: Grade 1 anterolisthesis at L5-S1 with bilateral L5 spondylolysis. OTHER FINDINGS: None. IMPRESSION: No evidence of urinary calculus or urinary tract obstruction. Findings consistent with nonspecific mesenteric adenitis. Calcified uterine fibroid. No other significant abnormality.
[2017-12-24 18:22] LABS: ALB/GLOB RATIO 1.3 (1.0-2.1); ALBUMIN 4.4 g/dL (3.5-5.0); ALT/SGPT 33 U/L (9-52); AST/SGOT 39 U/L (14-36); BLOOD UREA NITROGEN 22 mg/dl (7-17); CALCIUM 9.6 mg/dL (8.4-10.2); GFR NON-AFRICAN AMERICAN > 60
[2017-12-24 18:53] LABS: SQUAMOUS EPITHIAL 2 /hpf (0-5); URINE BACTERIA RARE (<OCC); URINE BILIRUBIN NEGATIVE (NEGATIVE); URINE BLOOD MODERATE (NEGATIVE); URINE CLARITY CLOUDY (Clear); URINE COLOR YELLOW (YELLOW); URINE GLUCOSE (UA) NEG (Normal); URINE LEUKOCYTE ESTERASE SMALL Leu/uL (Negative); URINE PROTEIN 100 mg/dL (NEGATIVE)
--- NOTE | 2017-12-24 20:04 | ED PDOC ---
- Laboratory Results Result Diagrams: 12/24/17 17:45 12/24/17 17:45 - ECG O2 Sat by Pulse Oximetry: 98 (RA) Pulse Ox Interpretation: Normal Medical Decision Making Medical Decision Makin Patient signed out to me by Dr. Lamar pending US study. 2044 US Transvaginal FINDINGS: Uterus/cervix: Anterior fundal hypoechoic partially calcified mass measures 5.1 cm, likely a fibroid. Mild endometrial thickening measuring 0.6 cm. Ovaries: Neither ovary is visualized. Free fluid: No free fluid. IMPRESSION: 1. Mild endometrial thickening measuring 0.6 cm. Cannot exclude polyp or other endometrial lesion. 2. Anterior fundal hypoechoic partially calcified mass measures 5.1 cm, likely a fibroid. 3 Neither ovary is visualized. 2114 On reassessment, patient is in no acute distress and is stable for discharge home. Labs and imaging results discussed with patient and instructed to follow up with PMD in 2-3 days. Diagnosis: Fibroid, UTI Scribe Attestation: Documented by Alyce Garcia, acting as a scribe for Moshe Rodriguez MD. Provider Scribe Attestation: All medical record entries made by the Scribe were at my direction and personally dictated by me. I have reviewed the chart and agree that the record accurately reflects my personal performance of the history, physical exam, medical decision making, and the department course for this patient. I have also personally directed, reviewed, and agree with the discharge instructions and disposition. Disposition - Clinical Impression Clinical Impression: UTI (urinary tract infection), Fibroids - POA Present On Arrival: None - Disposition Disposition: Routine/Home Disposition Time: 21:15 Condition: STABLE Prescriptions: Ciprofloxacin [Cipro] 500 mg PO Q12 #14 tab Instructions: Urinary Tract Infections in Adults, Uterine Fibroids Forms: [employer] (Welsh)
[2017-12-24 21:27] VITALS: BP 123/78; PULSE 73; RESP 15; TEMP 98.7
--- NOTE | 2017-12-25 10:23 | US ---
Date of service: 12/24/2017 HISTORY: vaginal bleeding post menopausal COMPARISON: 05/21/2009. TECHNIQUE: Transvaginal only. Real -time technique with 2D, duplex and color Doppler FINDINGS: UTERUS: Measures 4.7 x 5.8 x 8.3 cm. Normal in size, heterogeneous echo characteristics. Location of fibroid and size: Midline anterior sub serosal 3.7 x 4 x 5.1. On the prior study this measured 2.1 x 2 x 2.7 cm ENDOMETRIUM: Measures 6.2 mm in diameter. Unremarkable. CERVIX: No cervical abnormality identified. RIGHT OVARY: Not visible LEFT OVARY: Not visible. FREE FLUID: No significant free fluid noted. OTHER FINDINGS: None. IMPRESSION: Enlarged solitary fibroid compared to the prior study. Limitations of the current examination: Nonvisualization of the adnexa. Concordant results (preliminary interpretation) provided by [facility]. Procedure Completed: 19:12. Preliminary ([facility]) Report: Dictated and Authenticated: 20:45 Final Interpretation: 10:21. December 25, 2017.
[2017-12-27 19:49] VITALS: O2SAT 98
== END 2017-12-24 21:27 | disposition home or self-care (01) ==
LOC: H.ER 16:04
DX: N39.0 Urinary tract infection, site not specified (principal); D25.9 Leiomyoma of uterus, unspecified; E03.9 Hypothyroidism, unspecified; E11.9 Type 2 diabetes mellitus without complications; E78.00 Pure hypercholesterolemia, unspecified; F41.9 Anxiety disorder, unspecified; I10 Essential (primary) hypertension; Z79.84 Long term (current) use of oral hypoglycemic drugs; Z86.711 Personal history of pulmonary embolism
CPT/HCPCS: 74176; 76830; 80053; 81003; 81025; 85025; 87086; 87181; 99284; J1885; J7030

== ENCOUNTER 2018-01-21 15:24 | Emergency (ER) | payer OTHER ==
[2018-01-21 15:24] VITALS: BMI 29.3
[2018-01-21 17:13] LABS: SQUAMOUS EPITHIAL 1 /hpf (0-5); URINE BACTERIA RARE (<OCC); URINE BILIRUBIN NEGATIVE (NEGATIVE); URINE BLOOD NEGATIVE (NEGATIVE); URINE CLARITY CLEAR (Clear); URINE COLOR YELLOW (YELLOW); URINE GLUCOSE (UA) NEG (Normal); URINE PROTEIN NEGATIVE (NEGATIVE); URINE UROBILINOGEN 0.2-1.0 mg/dL (0.2-1.0)
[2018-01-21 17:16] LABS: URINE LEUKOCYTE ESTERASE SMALL Leu/uL (Negative)
[2018-01-21 18:42] VITALS: BP 140/56; PULSE 72; RESP 16; TEMP 98.1
--- NOTE | 2018-01-21 18:45 | ED PDOC ---
HPI: Abdomen Time Seen by Provider: 01/21/18 16:35 Chief Complaint (Nursing): Abdominal Pain Chief Complaint (Provider): Lower abdominal pain History Per: Patient History/Exam Limitations: no limitations Additional History Per: Patient Additional Complaint(s): 57yo female, comes to ER with complaints of lower abdominal pain per triage however patient states her main complaint is vaginal irritation. She reports similar symptoms a couple weeks ago and was treated with antibiotics with relief ; patient reports since she is diabetic, she might not have gotten enough antibiotics. Patient denies any vaginal bleeding or discharge. She also denies being sexually active. LMP: 20 years ago Past Medical History Reviewed: Historical Data, Nursing Documentation, Vital Signs Vital Signs: Last Vital Signs Temp 98.1 F 01/21/18 18:41 Pulse 72 01/21/18 18:41 Resp 16 01/21/18 18:41 BP 140/56 L 01/21/18 18:41 Pulse Ox 100 01/21/18 18:51 - Medical History PMH: Anxiety, Bronchitis, Diabetes, HTN, Hypercholesterolemia, Hyperlipidemia, Hypothyroidism, Pulmonary Embolism Denies: Hepatitis, HIV, Chronic Kidney Disease, Seizures, Sexually Transmitted Disease - Surgical History Surgical History: No Surg Hx - Family History Family History: States: No Known Family Hx - Immunization History Hx Tetanus Toxoid Vaccination: No Hx Influenza Vaccination: No Hx Pneumococcal Vaccination: No - Home Medications Home Medications: Ambulatory Orders Medication Instructions Recorded Glimepiride [Amaryl] 4 mg PO DAILY 05/20/15 Metformin HCl 1,000 mg PO BID 05/20/15 Simvastatin 20 mg PO DAILY 06/11/15 Levothyroxine [Synthroid] 75 mcg PO DAILY 04/02/17 Sertraline [Zoloft] 50 mg PO DAILY #30 tab 04/03/17 Oseltamivir Phosphate [Tamiflu] 75 mg PO BID 5 Days #10 capsule 06/19/17 Famotidine [Pepcid] 20 mg PO Q12 #20 tab 12/14/17 Ondansetron [Zofran] 4 mg PO Q8H #10 tab 12/14/17 Ciprofloxacin [Cipro] 500 mg PO Q12 #14 tab 12/24/17 Clindamycin [Cleocin] 300 mg PO BID #28 cap 01/21/18 - Allergies Allergies/Adverse Reactions: Allergies Allergy/AdvReac Type Severity Reaction Status Date / Time Iodine and Iodide Containing Allergy RASH Verified 01/21/18 16:10 Produc JCARLOS Inhibitors AdvReac Hyperkalemi Verified 01/21/18 16:10 a Review of Systems ROS Statement: Except As Marked, All Systems Reviewed And Found Negative Genitourinary Female: Positive for: Other (vaginal irritation). Negative for: Vaginal Discharge, Vaginal Bleeding Physical Exam - Reviewed Nursing Documentation Reviewed: Yes Vital Signs Reviewed: Yes - Physical Exam Appears: Positive for: Non-toxic, No Acute Distress Head Exam: Positive for: ATRAUMATIC, NORMAL INSPECTION, NORMOCEPHALIC Skin: Positive for: Normal Color Neck: Positive for: Supple Cardiovascular/Chest: Positive for: Regular Rate, Rhythm Respiratory: Positive for: Normal Breath Sounds Gastrointestinal/Abdominal: Positive for: Normal Exam, Soft. Negative for: Tenderness Pelvic Exam: Positive for: External Exam Normal, Discharge (scant yellow discharge no leeding.), Other (closed cervix. no pelvic abnormalities.) Back: Positive for: Normal Inspection. Negative for: L CVA Tenderness, R CVA Tenderness Extremity: Positive for: Normal ROM Neurologic/Psych: Positive for: Alert, Oriented - ECG O2 Sat by Pulse Oximetry: 100 (RA) Pulse Ox Interpretation: Normal Medical Decision Making Medical Decision Making: A&P: Vaginal irritation Genital culture and will determine treatment pending pelvic exam. Patient does not show sings of infection; urinalysis sent. 1817 Pelvic exam with scant yellow discharge. See physical exam for further findings. Patient has a follow up appointment with SOFT SUGAR SUPERVISOR tomorrow and instructed to follow up as scheduled. Stable for d/c home. Scribe Attestation: Documented by Alyce Garcia, acting as a scribe for Barbra Lopez MD Provider Scribe Attestation: All medical record entries made by the Scribe were at my direction and personally dictated by me. I have reviewed the chart and agree that the record accurately reflects my personal performance of the history, physical exam, medical decision making, and the department course for this patient. I have also personally directed, reviewed, and agree with the discharge instructions and disposition. Disposition - Clinical Impression Clinical Impression: Bacterial vaginitis - Disposition Disposition: Routine/Home Disposition Time: 18:18 Condition: STABLE Additional Instructions: Follow up with air traffic control operator as scheduled for tomorrow. Take antibiotics as prescribed. Return to the emergency department if pain worsens or if you develop fever, nausea/vomiting, or other new symptoms. Prescriptions: Clindamycin [Cleocin] 300 mg PO BID #28 cap Instructions: Bacterial Vaginosis (DC) Forms: [facility] (Bahraini)
[2018-01-21 18:46] VITALS: O2SAT 100
== END 2018-01-21 18:40 | disposition home or self-care (01) ==
LOC: H.ER 15:24
DX: N76.0 Acute vaginitis (principal); E03.9 Hypothyroidism, unspecified; E11.9 Type 2 diabetes mellitus without complications; E78.00 Pure hypercholesterolemia, unspecified; Z79.84 Long term (current) use of oral hypoglycemic drugs

== ENCOUNTER 2018-03-01 11:43 | Emergency (ER) | payer OTHER ==
[2018-03-01 11:45] VITALS: BMI 29.3
[2018-03-01 12:16] VITALS: RESP 18
[2018-03-01 15:39] LABS: BASO % 0.3 % (0.0-2.0); EOS # 0.2 K/uL (0.0-0.7); EOS % 2.3 % (0.0-4.0); LYMPH # 1.8 K/uL (1.0-4.3); LYMPH % 26.8 % (20.0-40.0); MEAN CELL VOLUME 85.8 fl (81.0-99.0); MEAN CORPUSCULAR HEMOGLOBIN 29.1 pg (27.0-31.0); MEAN CORPUSCULAR HGB CONC 33.9 g/dL (33.0-37.0); MEAN PLATELET VOLUME 8.6 fl (7.2-11.7); MONO # 0.5 K/uL (0.0-0.8); NEUT # 4.3 K/uL (1.8-7.0); NEUT % 62.6 % (50.0-75.0); NRBC % 0.1 % (0.0-0.0); RBC 4.81 Mil/uL (3.80-5.20); RED CELL DISTRIBUTION WIDTH 13.7 % (11.5-14.5); WHITE BLOOD COUNT 6.8 K/uL (4.8-10.8)
[2018-03-01 15:52] LABS: ALB/GLOB RATIO 1.2 (1.0-2.1); ALBUMIN 4.1 g/dL (3.5-5.0); ALT/SGPT 24 U/L (9-52); AST/SGOT 32 U/L (14-36); BLOOD UREA NITROGEN 18 mg/dl (7-17); CALCIUM 9.7 mg/dL (8.4-10.2); GFR NON-AFRICAN AMERICAN > 60
--- NOTE | 2018-03-01 15:57 | ED PDOC ---
HPI: General Adult Time Seen by Provider: 03/01/18 13:39 Chief Complaint (Nursing): Anxiety Chief Complaint (Provider): Loss of Appetite History Per: Patient History/Exam Limitations: no limitations Onset/Duration Of Symptoms: Days Additional Complaint(s): 57 y/o female presents to the ED complaining of loss of appetite. Patient states she lost insurance and is unable to follow up with her PMD. Patient reports of noticing within a couple of hours after eating, she begins to feel very shaky. Patient reports she has not checked her blood sugar. Patient additionally reports of being less hungry and only eats when she thinks she needs to. In addition, patient thinks that her thyroid is "not working" and that be the reason for the shakiness. Denies nausea, vomiting, diarrhea, abdominal pain, weight gain or weight loss. PMD: Dr. Castillo at the [facility] Past Medical History Reviewed: Historical Data, Nursing Documentation, Vital Signs Vital Signs: Last Vital Signs Temp 97.9 F 03/01/18 12:12 Pulse 83 03/01/18 12:12 Resp 18 03/01/18 12:12 BP 137/77 03/01/18 12:12 Pulse Ox 98 03/01/18 12:12 - Medical History PMH: Anxiety, Bronchitis, Diabetes, HTN, Hypercholesterolemia, Hyperlipidemia, Hypothyroidism, Pulmonary Embolism Denies: Hepatitis, HIV, Chronic Kidney Disease, Seizures, Sexually Transmitted Disease - Surgical History Surgical History: No Surg Hx - Family History Family History: States: Unknown Family Hx - Immunization History Hx Tetanus Toxoid Vaccination: No Hx Influenza Vaccination: No Hx Pneumococcal Vaccination: No - Home Medications Home Medications: Ambulatory Orders Medication Instructions Recorded RX: Glimepiride [Amaryl] 4 mg PO DAILY 05/20/15 RX: Metformin HCl 1,000 mg PO BID 05/20/15 RX: Simvastatin 20 mg PO DAILY 06/11/15 RX: Levothyroxine [Synthroid] 75 mcg PO DAILY 04/02/17 Sertraline [Zoloft] 50 mg PO DAILY #30 tab 04/03/17 Oseltamivir Phosphate [Tamiflu] 75 mg PO BID 5 Days #10 capsule 06/19/17 Famotidine [Pepcid] 20 mg PO Q12 #20 tab 12/14/17 Ondansetron [Zofran] 4 mg PO Q8H #10 tab 12/14/17 Ciprofloxacin [Cipro] 500 mg PO Q12 #14 tab 12/24/17 RX: Clindamycin [Cleocin] 300 mg PO BID #28 cap 01/21/18 - Allergies Allergies/Adverse Reactions: Allergies Allergy/AdvReac Type Severity Reaction Status Date / Time Iodine and Iodide Containing Allergy RASH Verified 03/01/18 12:11 Produc JCARLOS Inhibitors AdvReac Hyperkalemi Verified 03/01/18 12:11 a Review of Systems ROS Statement: Except As Marked, All Systems Reviewed And Found Negative Constitutional: Positive for: Other ("shaky"). Negative for: Weight loss (or gain) Gastrointestinal: Negative for: Nausea, Vomiting, Abdominal Pain, Diarrhea Genitourinary Female: Positive for: Other (Loss of appetite) Physical Exam - Reviewed Nursing Documentation Reviewed: Yes Vital Signs Reviewed: Yes - Physical Exam Appears: Positive for: No Acute Distress Head Exam: Positive for: ATRAUMATIC, NORMOCEPHALIC Skin: Positive for: Normal Color, Warm, Dry Eye Exam: Positive for: Normal appearance, EOMI, PERRL Neck: Positive for: Normal, Painless ROM Cardiovascular/Chest: Positive for: Regular Rate, Rhythm. Negative for: Murmur Respiratory: Positive for: Normal Breath Sounds. Negative for: Respiratory Distress Gastrointestinal/Abdominal: Positive for: Normal Exam, Soft. Negative for: Tenderness Back: Positive for: Normal Inspection. Negative for: L CVA Tenderness, R CVA Tenderness, Vertebral Tenderness Extremity: Positive for: Normal ROM. Negative for: Pedal Edema, Deformity Neurologic/Psych: Positive for: Alert, Oriented. Negative for: Motor/Sensory Deficits - Laboratory Results Result Diagrams: 03/01/18 14:50 03/01/18 14:50 - ECG O2 Sat by Pulse Oximetry: 98 (RA) Pulse Ox Interpretation: Normal Medical Decision Making Medical Decision Making: Time: 1450 A/P: Workup for hypo hypoglycemia vs thyroid abnormality -- Labs including A1C and Thyroid Panel -- Reassess patient -- CMP -- Hemoglobin A1C -- T3 -- T4 -- TSH -- CBC with Differentials -- Glucose, POC 1900 Labs WNL. Pt will follow up with PMD for continued care of care home medications. NO indication for admission or change in medications. Return parameters discussed with the patient. Scribe Attestation: Documented by Edna Iyer, acting as a scribe for Fernando Lopez MD. Provider Scribe Attestation: All medical record entries made by the Scribe were at my direction and personally dictated by me. I have reviewed the chart and agree that the record accurately reflects my personal performance of the history, physical exam, medical decision making, and the department course for this patient. I have also personally directed, reviewed, and agree with the discharge instructions and disposition. Disposition - Clinical Impression Clinical Impression: Diabetes mellitus type 2, controlled, without complications, Loss of appetite - Disposition Disposition Time: 19:00 Condition: IMPROVED Additional Instructions: Today your labs showed controlled diabetes and normal thyroid function levels. Your labs are otherwise normal. Follow up with primary medical doctor for further medication adjustment. Return to the emergency department if symptoms worsen or if new symptoms develop. Forms: [employer] (Greenlandic) Print Language: POLISH
[2018-03-01 16:08] LABS: T4 6.79 ug/dl (5.5-11.0)
[2018-03-01 16:22] LABS: T3 0.882 nmol/L (1.49-2.60)
[2018-03-01 19:19] VITALS: BP 157/83; PULSE 70; TEMP 99.2
[2018-03-05 09:36] VITALS: O2SAT 98
== END 2018-03-01 19:10 | disposition home or self-care (01) ==
LOC: H.ER 11:43
DX: R63.0 Anorexia (principal); E11.9 Type 2 diabetes mellitus without complications; E03.9 Hypothyroidism, unspecified; E78.00 Pure hypercholesterolemia, unspecified; I10 Essential (primary) hypertension; Z79.84 Long term (current) use of oral hypoglycemic drugs; Z86.711 Personal history of pulmonary embolism

== ENCOUNTER 2018-08-23 10:27 | Emergency (ER) | payer SELFPAY ==
[2018-08-23 10:38] VITALS: BMI 28.8
[2018-08-23 10:39] VITALS: TEMP 98.6
--- NOTE | 2018-08-23 11:34 | ED PDOC ---
HPI: General Adult Time Seen by Provider: 08/23/18 11:03 Chief Complaint (Nursing): Headache Chief Complaint (Provider): Headache History Per: Patient History/Exam Limitations: no limitations Onset/Duration Of Symptoms: Days (x 2 weeks) Current Symptoms Are (Timing): Still Present Additional Complaint(s): 58 year old female with a history of hypothyroidism, HTN and PE presents to the ED for evaluation of intermittent lightheadedness for two weeks as well as a frontal headache for two months. Patient was concerned about her sugar. However, her sugar was normal. Denies chest pain, shortness of breath, visual changes, paresthesias, and focal weakness. PMD: Dr. Tere Martinez Past Medical History Reviewed: Historical Data, Nursing Documentation, Vital Signs Vital Signs: Last Vital Signs Temp 98.6 F 08/23/18 10:38 Pulse 70 08/23/18 10:38 Resp 18 08/23/18 10:38 BP 140/74 08/23/18 10:38 Pulse Ox 99 08/23/18 10:38 - Medical History PMH: Anxiety, Bronchitis, Diabetes, HTN, Hypercholesterolemia, Hyperlipidemia, Hypothyroidism, Pulmonary Embolism Denies: Hepatitis, HIV, Chronic Kidney Disease, Seizures, Sexually Transmitted Disease - Surgical History Other surgeries: tubal ligation and thyroidectomy - Family History Family History: States: Unknown Family Hx - Immunization History Hx Tetanus Toxoid Vaccination: No Hx Influenza Vaccination: No Hx Pneumococcal Vaccination: No - Home Medications Home Medications: Ambulatory Orders Medication Instructions Recorded Glimepiride [Amaryl] 4 mg PO DAILY 05/20/15 Metformin HCl 1,000 mg PO BID 05/20/15 Simvastatin 20 mg PO DAILY 06/11/15 Levothyroxine [Synthroid] 75 mcg PO DAILY 04/02/17 Sertraline [Zoloft] 50 mg PO DAILY #30 tab 04/03/17 Oseltamivir Phosphate [Tamiflu] 75 mg PO BID 5 Days #10 capsule 06/19/17 Famotidine [Pepcid] 20 mg PO Q12 #20 tab 12/14/17 Ondansetron [Zofran] 4 mg PO Q8H #10 tab 12/14/17 Ciprofloxacin [Cipro] 500 mg PO Q12 #14 tab 12/24/17 Clindamycin [Cleocin] 300 mg PO BID #28 cap 01/21/18 Levothyroxine [Synthroid] 100 mcg PO DAILY #14 tab 08/23/18 - Allergies Allergies/Adverse Reactions: Allergies Allergy/AdvReac Type Severity Reaction Status Date / Time Iodine and Iodide Containing Allergy RASH Verified 08/23/18 11:17 Produc JCARLOS Inhibitors AdvReac Hyperkalemi Verified 08/23/18 11:17 a Review of Systems ROS Statement: Except As Marked, All Systems Reviewed And Found Negative Constitutional: Positive for: Other (lightheadedness) Eyes: Negative for: Vision Change Cardiovascular: Negative for: Chest Pain Respiratory: Negative for: Shortness of Breath Neurological: Positive for: Headache (frontal) Physical Exam - Reviewed Nursing Documentation Reviewed: Yes Vital Signs Reviewed: Yes - Physical Exam Appears: Positive for: No Acute Distress Head Exam: Positive for: ATRAUMATIC, NORMAL INSPECTION, NORMOCEPHALIC Skin: Positive for: Normal Color, Warm, Dry Eye Exam: Positive for: EOMI, Normal appearance, PERRL Neck: Positive for: Normal, Painless ROM, Supple Cardiovascular/Chest: Positive for: Regular Rate, Rhythm. Negative for: Murmur Respiratory: Positive for: Normal Breath Sounds. Negative for: Respiratory Distress Gastrointestinal/Abdominal: Positive for: Normal Exam, Soft. Negative for: Tenderness, Mass, Guarding Back: Positive for: Normal Inspection. Negative for: L CVA Tenderness, R CVA Tenderness Extremity: Positive for: Normal ROM (x 4). Negative for: Deformity Neurological/Psych: Positive for: Awake, Alert, Normal Tone, Oriented (x 3). Negative for: Motor/Sensory Deficits - Laboratory Results Result Diagrams: 08/23/18 11:20 08/23/18 11:20 - ECG O2 Sat by Pulse Oximetry: 99 (RA) Pulse Ox Interpretation: Normal Medical Decision Making Medical Decision Makin:18 Impression: headache and lightheadedness Initial Plan: --CT Head --CBC --CMP --CXR --PTT --PT --TSH --Urine dip --UA --Glucose POC Accession No. : [id number] Patient Name / ID : YEE NAPIER / [id number] Exam Date : 08/23/2018 11:45:18 ( Approved ) Study Comment : Sex / Age : F / 58Y Creator : Dictator : Erin Ramírez MD Transit Mix Operator : Emergency Management Coordinator : Erin Ramírez MD Approver2 : Report Date : My Comment : Date of service: 08/23/2018 HISTORY: Lightheadedness COMPARISON: 09/24/2017. TECHNIQUE: Chest PA and lateral FINDINGS: LINES AND TUBES: None. LUNG AND PLEURA: The lungs are well inflated and clear. No pleural effusion or pneumothorax. HEART AND MEDIASTINUM: The heart is not enlarged. No aortic atherosclerotic calcifications present. The hilar and mediastinal contours are within normal limits. SKELETAL STRUCTURES: The bony structures are within normal limits for the patient's age. VISUALIZED UPPER ABDOMEN: Normal. OTHER FINDINGS: None. IMPRESSION: No active pulmonary disease. Accession No. : [id number] Patient Name / ID : YEE NAPIER / [id number] Exam Date : 08/23/2018 13:45:16 ( Approved ) Study Comment : Sex / Age : F / 58Y Creator : Erin Ramírez MD Dictator : Erin Ramírez MD Transit Mix Operator : Emergency Management Coordinator : Erin Ramírez MD Approver2 : Report Date : 08/23/2018 13:54:02 My Comment : Date of service: 08/23/2018 PROCEDURE: CT HEAD WITHOUT CONTRAST. HISTORY: Frontal LOPEZ COMPARISON: None available. TECHNIQUE: Axial computed tomography images were obtained through the head/brain without intravenous contrast. Radiation dose: Total exam DLP = 960.83 mGy-cm. This CT exam was performed using one or more of the following dose reduction techniques: Automated exposure control, adjustment of the mA and/or kV according to patient size, and/or use of iterative reconstruction technique. FINDINGS: HEMORRHAGE: No intracranial hemorrhage. BRAIN: Serrato-white matter differentiation is preserved. There is no mass, mass effect or abnormal extra-axial fluid collection. There is no territorial infarction. The midline sagittal structures are normal. VENTRICLES: The ventricles are normal in size, shape and configuration. CALVARIUM: There is no calvarial fracture or extracranial soft tissue swelling. PARANASAL SINUSES: Predominantly clear. MASTOID AIR CELLS: Predominantly clear. OTHER FINDINGS: None. IMPRESSION: No acute intracranial abnormality. 14:[address] Webb, recommends increasing dose of Synthroid to 100 mcg daily, follow-up with PMD. Scribe Attestation: Documented by Claudia Morejon, acting as a scribe for Day Cueva MD Provider Scribe Attestation: All medical record entries made by the Scribe were at my direction and personally dictated by me. I have reviewed the chart and agree that the record accurately reflects my personal performance of the history, physical exam, medical decision making, and the department course for this patient. I have also personally directed, reviewed, and agree with the discharge instructions and disposition Disposition - Clinical Impression Clinical Impression: Lightheadedness - Disposition Referrals: [facility] [Outside] Disposition: Routine/Home Disposition Time: 14:45 Condition: STABLE Additional Instructions: INCREASE DOSE OF SYNTHROID TO 100 MCG DAILY. Prescriptions: Levothyroxine [Synthroid] 100 mcg PO DAILY #14 tab Instructions: Dizziness, Nonvertigo, (DC) Forms: [employer] (Indonesian)
[2018-08-23 11:40] LABS: BASO % 0.4 % (0.0-2.0); EOS # 0.1 K/uL (0.0-0.7); HEMOGLOBIN 14.5 g/dL (12.0-16.0); LYMPH # 1.2 K/uL (1.0-4.3); LYMPH % 26.1 % (20.0-40.0); MEAN CELL VOLUME 86.1 fl (81.0-99.0); MEAN CORPUSCULAR HEMOGLOBIN 28.2 pg (27.0-31.0); MEAN CORPUSCULAR HGB CONC 32.8 g/dL (33.0-37.0); MEAN PLATELET VOLUME 8.7 fl (7.2-11.7); MONO # 0.4 K/uL (0.0-0.8); MONO % 8.2 % (0.0-10.0); NEUT % 63.3 % (50.0-75.0); NRBC % 0.1 % (0.0-0.0); RBC 5.14 Mil/uL (3.80-5.20); RED CELL DISTRIBUTION WIDTH 13.8 % (11.5-14.5); WHITE BLOOD COUNT 4.7 K/uL (4.8-10.8)
[2018-08-23 11:44] LABS: PROTHROMBIN TIME 11.1 Seconds (9.8-13.1)
[2018-08-23 11:47] LABS: PARTIAL THROMBOPLASTIN TIME 32.9 Seconds (25.6-37.1)
[2018-08-23 11:51] LABS: ALB/GLOB RATIO 1.3 (1.0-2.1); ALBUMIN 4.6 g/dL (3.5-5.0); ALT/SGPT 26 U/L (9-52); AST/SGOT 33 U/L (14-36); BLOOD UREA NITROGEN 16 mg/dl (7-17); CALCIUM 10.1 mg/dL (8.4-10.2); GFR NON-AFRICAN AMERICAN > 60
[2018-08-23 12:36] LABS: SQUAMOUS EPITHIAL 2 /hpf (0-5); URINE BACTERIA RARE (<OCC); URINE BILIRUBIN NEGATIVE (NEGATIVE); URINE BLOOD NEGATIVE (NEGATIVE); URINE CLARITY SLIGHTY-CLOUDY (Clear); URINE COLOR STRAW (YELLOW); URINE GLUCOSE (UA) NEG (NEGATIVE); URINE LEUKOCYTE ESTERASE TRACE Leu/uL (Negative); URINE PROTEIN NEGATIVE (NEGATIVE); URINE UROBILINOGEN 0.2-1.0 mg/dL (0.2-1.0)
--- NOTE | 2018-08-23 12:49 | RAD ---
Date of service: 08/23/2018 HISTORY: Lightheadedness COMPARISON: 09/24/2017. TECHNIQUE: Chest PA and lateral FINDINGS: LINES AND TUBES: None. LUNG AND PLEURA: The lungs are well inflated and clear. No pleural effusion or pneumothorax. HEART AND MEDIASTINUM: The heart is not enlarged. No aortic atherosclerotic calcifications present. The hilar and mediastinal contours are within normal limits. SKELETAL STRUCTURES: The bony structures are within normal limits for the patient's age. VISUALIZED UPPER ABDOMEN: Normal. OTHER FINDINGS: None. IMPRESSION: No active pulmonary disease.
--- NOTE | 2018-08-23 13:57 | CT ---
Date of service: 08/23/2018 PROCEDURE: CT HEAD WITHOUT CONTRAST. HISTORY: Frontal LOPEZ COMPARISON: None available. TECHNIQUE: Axial computed tomography images were obtained through the head/brain without intravenous contrast. Radiation dose: Total exam DLP = 960.83 mGy-cm. This CT exam was performed using one or more of the following dose reduction techniques: Automated exposure control, adjustment of the mA and/or kV according to patient size, and/or use of iterative reconstruction technique. FINDINGS: HEMORRHAGE: No intracranial hemorrhage. BRAIN: Serrato-white matter differentiation is preserved. There is no mass, mass effect or abnormal extra-axial fluid collection. There is no territorial infarction. The midline sagittal structures are normal. VENTRICLES: The ventricles are normal in size, shape and configuration. CALVARIUM: There is no calvarial fracture or extracranial soft tissue swelling. PARANASAL SINUSES: Predominantly clear. MASTOID AIR CELLS: Predominantly clear. OTHER FINDINGS: None. IMPRESSION: No acute intracranial abnormality.
--- NOTE | 2018-08-23 15:07 | CARD ---
APPROVED REPORT Date of service: 08/23/2018 EKG Measurement Heart [id number] <Conclusion> Normal sinus rhythm Septal infarct, age undetermined Abnormal ECG
[2018-08-23 15:24] VITALS: BP 120/70; PULSE 72; RESP 20
[2018-08-25 10:59] VITALS: O2SAT 99
== END 2018-08-23 15:25 | disposition home or self-care (01) ==
LOC: H.ER 10:27
DX: R42 Dizziness and giddiness (principal); E03.9 Hypothyroidism, unspecified; E11.9 Type 2 diabetes mellitus without complications; E78.00 Pure hypercholesterolemia, unspecified; F41.9 Anxiety disorder, unspecified; I10 Essential (primary) hypertension; Z79.84 Long term (current) use of oral hypoglycemic drugs; Z86.711 Personal history of pulmonary embolism; Z88.8 Allergy status to other drugs, medicaments and biological substances